=== PATIENT | male | born 2000 | race Caucasian/White ===

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

== ENCOUNTER → 2018-06-16 | Day surgery (SDC) | payer BC, OTHER ==
[2018-05-29 13:40] VITALS: BMI 24.0
--- NOTE | 2018-06-15 16:04 | History and Physical ---
History & Physical Date Jun 15, 2018. Chief Complaint airway obstruction, sleep apnea History of Present Illness The patient is a 17 year old male with complaints of sleep apnea aggravated by deviated septum and hypertrophied tonsils Additional History Hepatic Disease: No Endocrine Disorder: No Kidney Disease: No Hypertension: No Heart Disease: No Bleeding Tendencies: No Infectious Diseases: No Allergies Coded Allergies: Sulfamethoxazole w/Trimethoprim (Verified Adverse Reaction, Mild, nausea, SOB, 05/29/18) Home Medications Scheduled Cholecalciferol (Vitamin D3), Unknown Dose PO QAM Clindamycin Phosphate-Benzoyl (Onexton 1.2-3.75 %), 1 APPLN TOP QAM Fish Oil ([place]-3), Unknown Dose PO QAM Sertraline (Zoloft), 1 TAB PO QAM Tazarotene (Tazorac 0.1% Cream), 1 APPLN TOP HS Physical Examination Skin: warm/dry, no rash Eyes: normal inspection, EOMI, sclerae normal ENT: normal ENT inspection, pharynx normal Head: normocephalic, atraumatic Neck: supple, no adenopathy, trachea midline Respiratory/Chest: lungs clear, normal breath sounds, no respiratory distress Cardiovascular: regular rate, rhythm, no edema, no murmur Abdomen / GI: normal bowel sounds, non tender Back: normal inspection Extremities: normal inspection, normal range of motion Neurologic/Psych: no motor/sensory deficits, alert, normal reflexes, oriented x 3 Diagnosis chronic tonsillitis, septal deviation, sleep apnea Plan of Treatment adenotonsillectomy, septoplasty, Celon turbinates
[~2018-06-16] VITALS: Ht 185.4 cm; Wt 84.1 kg
[~2018-06-16] MED LIST: ACETAMINOPHEN/HYDROCODONE ELIX 15 ML/CUP UDP PO PRN; ATROPINE SULFATE 0.1 MG/ML 5ML SYR IV PRN; BUPIVACAINE/EPINEPHRINE 0.5% MPF 1:200,000 30 ML VIAL ONE; CEFAZOLIN 2000MG IV PUSH 15 ML IV SCH; CHOL1000 PO; CLIN1GEL41 TOP; EpHEDrine SULFATE INJ 50 MG/ML AMP IV PRN; EpINEphrine INJ 1MG/ML AMP 1 MG/ML AMP ONE; FENTANYL CITRATE INJ 50 MCG/1 ML 2 ML VIAL ONE; GELATIN SPONGE 12-7MM ONE; GLYCOPYRROLATE INJ 0.2 MG/ML VIAL ONE; HYDR1SOL10 PO; HYDROmorphone INJ 0.5 MG/0.5 ML SYR IV PRN; LACTATED RINGER'S 1000ML 1,000 ML IV SCH; LIDOCAINE 2% 20 MG/ML 5ML SYR ONE; LIDOCAINE 4% INH SOLN 4 ML BTL ONE; LIDOCAINE/EPINEPHRINE 2% 1:200,000 20 ML SDV INFIL ONE; MIDAZOLAM HCL 1 MG/ML 2ML VIAL ONE; MUPIROCIN 2% OINT 22 GM TUBE ONE; NEOSTIGMINE METHYLSULFATE 5 MG/5 ML SYR ONE; OMEG10007 PO; ONDANSETRON INJ 2 MG/ML 2 ML VIAL IV PRN; ONDANSETRON INJ 2 MG/ML 2 ML VIAL ONE; PROPOFOL IV EMULSION 10 MG/ML 20 ML VIAL ONE; ROCURONIUM BROMIDE 10 MG/ML 5 ML VIAL ONE; SERT25TA PO; SODIUM CHLORIDE 0.9% 1000ML 1,000 ML IV SCH; TZRCR160 TOP
[2018-06-16 08:03] VITALS: BP 154/94; PULSE 96; TEMP 37.1; O2SAT 100; Ht 185.4 cm; Wt 84.1 kg
--- NOTE | 2018-06-16 09:22 | History & Physical Bridge Note ---
H&P Re-Evaluation Bridge Note: I have examined the patient, reviewed the History & Physical and in the interval since the performance of the History & Physical I have noted the following changes of clinical significance: No changes noted
--- NOTE | 2018-06-16 10:45 | [facility] Post Operative Brief Note ---
Immediate Operative Summary Operative Date Jun 16, 2018. Pre-Operative Diagnosis airway obstruction, sleep apnea Post-Operative Diagnosis airway obstruction, sleep apnea Procedure(s) Performed Adenotonsillectomy, Septoplasty, Celon Turbinate Surgeon Dr jaramillo Offset Printing Operator Surgeon(s) None Estimated Blood Loss 20cc Findings Consistent with Post-Op Diagnosis Specimens As Per Surgeon A. Right Tonsil B. Left Tonsil Drains None Anesthesia Type General Complication(s) none Disposition Accompanied Pt To Recover: yes Disposition: Recovery Room / PACU Overlapping Procedure I was present for: the critical portions of procedure. I was immediately available: during the entire case
--- NOTE | 2018-06-16 10:47 | Discharge Instructions ---
Discharge Instructions Date of Service Jun 16, 2018. Admission Reason for Admission: Chronic Tonsillitis, Septal Deviation, Sleep Apnea Discharge Discharge Diagnosis / Problem: same Discharge Goals Goal(s): Improve function Activity Recommendations Activity Limitations: per Instructions/Follow-up section . Instructions / Follow-Up Instructions / Follow-Up ACTIVITY RECOMMENDATIONS: * During the first few days, activities should be limited. * Stay indoors for several days. * After 48 hours, activity can gradually be increased to normal activity. RETURN TO SCHOOL/WORK: * Return to school or work in one week. * No physical education for two weeks. OVER THE COUNTER MEDICATIONS: * You may use Tylenol * Avoid aspirin or aspirin containing products, e.g. as they may increase bleeding. SPECIAL CARE INSTRUCTIONS: * Avoid coughing or clearing the throat. * Do not use a straw. * A sore throat is expected frequently accompanied by pain radiating to the ears. This is normal. * Expect bad breath until "scabs" are healed. * Notify the doctor if bleeding occurs, vomiting, temperature greater than 101 degrees Fahrenheit. Call or cell phone: . * If bleeding occurs, it is usually in the first 24 hours or after the 5th day. If unable to reach the doctor, go to the nearest Emergency Department. Special Diet: * Fluids are very important and should be encouraged to maintain adequate hydration. * To maintain nutrition, eat soft foods and after 48 hours the consistency of foods can be increased. Examples are jello, soup, pasta, ice cream and mashed foods. FOLLOW UP VISIT: Follow-up visit with Dr. Bruno in 2 weeks. Please call to schedule if not already scheduled.ACTIVITY RECOMMENDATIONS: * Being up and around is good, but no strenuous activity, heavy lifting or physical exertion for one week. * Keep your head elevated 30 degrees when lying down or sleeping. * Do not blow your nose for 48 hours, sniff back instead. * Avoid hot showers. OVER THE COUNTER MEDICATIONS: * You may use Tylenol * Avoid aspirin or aspirin containing products, e.g. as they may increase bleeding. SPECIAL CARE INSTRUCTIONS: * Expect to have bloody drainage from your nose and/or down your throat for one to three days. Change drip pad as needed. * Begin irrigating your nose with saline solution today, at least six to ten times per day and sniff back to help remove old clots or crust. * You may experience nasal and facial congestion, pain and pressure, this is normal. * Please call with any significant and/or progressive pain, redness, swelling around the eyes, visual changes, fever of 101.5 degrees F, active bleeding or any problems or concerns. * If active bleeding occurs, spray the nose three times at one minute intervals with Afrin spray and call or cell phone: . If unable to reach the doctor, go to the nearest Emergency Department. Special Diet: * Avoid extremely hot fluids. FOLLOW UP VISIT: Follow-up Visit with Dr. Bruno If not already scheduled, please call to schedule. Current Hospital Diet Patient's current hospital diet: Discharge Diet Recommended Diet: Full Liquid Diet Diet Texture: Mechanical Soft (ground) Procedures Procedures Performed: Adenotonsillectomy, Septoplasty, Celon Turbinate Pending Studies Studies pending at discharge: no Medical Emergencies . Who to Call and When: Medical Emergencies: If at any time you feel your situation is an emergency, please call 911 immediately. . Non-Emergent Contact Non-Emergency issues call your: Primary Care Provider . "Provider Documentation" section prepared by Cheryl Bruno. . [place] Drug Monitoring Program Search Results: no issues identified
[2018-06-16] MEDS: FENTANYL CITRATE INJ 50 MCG/1 ML 2 ML VIAL IV PRN ×2 (11:12→11:18)
[2018-06-16 11:57] VITALS: BP 141/74; PULSE 98; TEMP 36.8; O2SAT 98
--- NOTE | 2018-06-16 11:59 | OPERATIVE REPORT ---
DATE OF OPERATION: 06/16/2018 PREOPERATIVE DIAGNOSES: Chronic tonsillitis, septal deviation, and sleep apnea. POSTOPERATIVE DIAGNOSES: Chronic tonsillitis, septal deviation, and sleep apnea. PROCEDURE: Adenotonsillectomy, septoplasty, Celon of the turbinates. SURGEON: Dr. Bruno. ANESTHESIA: General endotracheal. COMPLICATIONS: None. BLOOD LOSS: 20 mL. HISTORY OF PRESENT ILLNESS: A 17-year-old with recurrent chronic tonsillitis, also septal deviation to the left, and significant sleep apnea on sleep study. DESCRIPTION OF PROCEDURE: The patient was brought to the operating room and placed in supine position. General endotracheal anesthesia was induced. He was prepped and draped in usual sterile manner. The nose was decongested using topical cottonoids with a solution of 4 mL of 4% Xylocaine with 1 mL of epinephrine. Injection of 2% Xylocaine with 1:100,000 strength epinephrine was also used. The inferior turbinates were treated with radiofrequency volume reduction using the Celon machine creating 5 lesions in each inferior turbinate. The inferior turbinates were then fractured laterally using the freer elevator. The left hemitransfixion incision was made and mucoperichondrium elevated off of the left side of the septum. The cartilage was deviated to the left inferiorly as was the perpendicular plate of the ethmoid. Superior and inferior tunnels were elevated and bilateral posterior tunnels were elevated after the cartilage from the perpendicular plate of the ethmoid. The bony cartilaginous spur projecting to the left was removed using the 15 blade, the Casey dissector, and then the Benton-Roge rongeurs, and the Nae forceps. The bone spur to the left inferiorly had to be removed using the 4 mm osteotome cutting along the bone spur projecting to the left. The septum was closed using continuous mattress suture of 4-0 plain gut. Anterior nasal packing of Gelfoam was placed. The patient was brought to the operating room and placed in supine position. General endotracheal anesthesia was induced, draped in the usual manner. Mouth gag was placed. Peritonsillar area was injected with .5% Sensorcaine, 1:200:000 strength Epinephrine. Soft palate retracted using a red Pacheco catheter. Tonsillectomy performed using the coblation device coblating out the tonsil from anterior to the posterior pillar and from the superior pole to the inferior pole. Both tonsils were removed in a similar manner. Hemostasis was controlled with the coblation device. Adenoidectomy was performed using the coblation technique and hemostasis controlled using the coblation technique. The patient tolerated the procedure well and was taken to the recovery area in satisfactory condition. I attest to the content of the Intraoperative Record and any orders documented therein. Any exception s are noted below.
--- NOTE | 2018-06-16 12:10 | Anesthesiology Progress Note ---
Anesthesia Post Op Note Date & Time Jun 16, 2018 at 12:09 Vital Signs Pain Intensity: 3 Vital Signs Past 12 Hours Date Time Temp Pulse Resp B/P (MAP) Pulse Ox O2 Delivery O2 Flow Rate FiO2 06/16/18 11:45 37.0 99 13 138/81 99 Room Air 06/16/18 11:35 100 14 143/76 97 Room Air 06/16/18 11:25 101 18 137/82 100 Oxymask 10 06/16/18 11:15 108 12 147/76 100 Oxymask 10 06/16/18 11:06 36.3 117 12 134/88 100 Oxymask 10 06/16/18 08:03 37.1 96 18 154/94 (114) 100 Room Air Notes Mental Status: alert / awake / arousable, participated in evaluation Pt Amnestic to Procedure: Yes Nausea / Vomiting: adequately controlled Pain: adequately controlled Airway Patency, RR, SpO2: stable & adequate BP & HR: stable & adequate Hydration State: stable & adequate Anesthetic Complications: no major complications apparent
[2018-06-16 12:27] VITALS: BP 140/74; PULSE 95; O2SAT 98
[2018-06-16 13:00] VITALS: BP 151/80; PULSE 98; TEMP 36.9; O2SAT 98
== END | disposition home or self-care (01) ==
LOC: C.ACU 07:40
PROVIDERS: ATTEND Otolaryngology
DX: J35.01 Chronic tonsillitis (principal); J34.2 Deviated nasal septum; G47.33 Obstructive sleep apnea (adult) (pediatric); Z88.1 Allergy status to other antibiotic agents; Z88.2 Allergy status to sulfonamides

== ENCOUNTER 2020-01-31 12:31 | Inpatient (IN) ==
[2020-01-31] MEDS ORDERED: SODIUM CHLORIDE 0.9% 1000ML 1,000 ML IV ONE (13:17)
[2020-01-31] MEDS ORDERED: SODIUM CHLORIDE 0.9% 1000ML 2,000 ML IV ONE (13:17)
[2020-01-31] MEDS ORDERED: cefTRIAXone SODIUM 1,000 MG/50 ML BAG IV STA ×2 (13:17→13:27)
[2020-01-31] MEDS ORDERED: ACETAMINOPHEN 500 MG TAB PO STA (13:17)
--- NOTE | 2020-01-31 13:23 | Emergency Department Note ---
ED Provider Note NAME: ROCKY HUGHES AGE: 19 SEX: M ARRIVES VIA: Walk-In INFORMANT: Patient ED PROVIDER(S): Ananth Polo DO CHIEF COMPLAINT: Shortness of breath MEDICAL DECISION MAKING: Patient is a 19-year-old male with no significant past medical history is that presents the ER for mild cough associated with fever and shortness of breath. He traveled to [place] over a month ago and was there for a month and a half. The symptoms all started in the past 24 hours. No other recent exposure. Upon presentation he was found to be hypoxic, tachycardic and febrile. He was placed on 2 L nasal cannula. IV was established blood work was obtained and showed a leukocytosis of 26,000. No significant anemia. BMP with mild hyponatremia. INR was appropriate. LFTs was unremarkable. Magnesium was slightly low. Lactate was normal. Chest x-ray with a bilateral pneumonia. With his travel and presentation although extremely atypical due to the duration as he has been out for over 4 weeks did order bio fire which came back negative. After this I discussed with our hospital infectious disease nurse who did agree with testing for rehman. Orders were placed. Nurse could call Department of Health to facilitate this. I did re-update Dr. Lara who I discussed the case with for admission already at this time. Patient was given IV Rocephin and oral azithromycin. He was given 2 L IV fluids. Mom and dad were updated on 2 separate times. Patient remained in isolation throughout the whole time. Triage Nursing notes reviewed and agree them. Additional history obtained from parents Prior medical records reviewed Vital Signs: reviewed and remarkable for febrile, tachycardic, hypoxic Differential diagnosis: Differential diagnoses includes but is not limited to pneumonia, bronchitis, COPD/Asthma exacerbation, pneumothorax, pulmonary embolism, congestive heart failure, acute coronary syndrome Diagnostics interpreted by me: ECG: Sinus tach rate of 113. Normal axis. ST depressions in the inferior anterior and lateral. T wave inversion in the inferior leads. Incomplete right bundle. Normal QTC. Cardiac Monitoring: Sinus tach 112 Laboratory studies: See below Imaging studies: See below chest x-ray shows a multifocal pneumonia left worse than right. Consultation(s): Lynn Lara for admission. Discussed with infectious disease nurse in regards to carotid testing. HPI:Patient is 19-year-old male with no significant past medical history that presents the ER for shortness of breath associated with fever and tachycardia. He has recent travel to [place] for 1.5 months. He just returned 4 weeks ago. Shortness of breath chest pain and cough have started in the past 24 hours. He does complain of persistent left-sided chest pain. Denies any other travel throughout the [place]. Fever started in the past 24 hours as well. Denies any open wound open sores. No swelling of his cast. No belly pain but does admit to the nausea and one episode of vomiting. No diarrhea. ROS: See above HPI for pertinent positives & negatives. A total of 10 systems reviewed and were otherwise negative. PAST MEDICAL HISTORY: Anxiety PAST SURGICAL HISTORY:None FAMILY HISTORY:See Below SOCIAL HISTORY:Admits to drinking HOME MEDICATIONS:See Below ALLERGIES:See Below VITALS:See Below PHYSICAL EXAMINATION: GENERAL: Sitting up in bed, ill appearing, mild distress EYE EXAM: normal conjunctiva. OROPHARYNX: no exudate, no erythema, lips, buccal mucosa, and tongue normal and mucous membranes are moist NECK: supple, no nuchal rigidity, no adenopathy, non-tender LUNGS: Clear to auscultation. Normal chest wall mechanics HEART: no murmurs, S1 normal and S2 normal ABDOMEN: abdomen soft, non-tender, normo-active bowel sounds, no masses, no rebound or guarding. BACK: Back is symmetrical on inspection and there is no deformity, no midline tenderness, no CVA tenderness. SKIN: no rashes and no bruising UPPER EXTREMITIES: upper extremities are grossly normal. LOWER EXTREMITIES: No pitting edema. NEURO EXAM: Normal sensorium, cranial nerves II-XII grossly intact, normal speech, no gross weakness of arms, no gross weakness of legs. ED COURSE: Procedures: none Critical Care: I have personally spent 80 minutes of critical care time in the direct management of this patient. This includes bedside care, interpretation of diagnostic studies, and testing, discussion with consultants, patient, and family members, and other required patient management activities. This 80 minutes is in excess of all separately billable procedures. Impression & Plan Sepsis, Multifocal pneumonia, Hypoxia Past Med/Surg History Medical History Acne (Acute) Anxiety Anxiety (Inactive) Fever (Acute) Suicidal ideation (Inactive) Family History Other No pertinent family history in first degree relatives Social History (Updated 01/31/20 @ 17:57 by Estelle Lara DO) Preferred Language: Romanian Feels Safe at Home: Yes Smoking Status: Never smoker Hx Alcohol Use: Yes (hx of heavy use, none x3 weeks) Hx Substance Use: No Results & Data Vital Signs Vital Signs - 24 hr 01/31/20 12:36 01/31/20 13:14 01/31/20 13:15 Temperature 38.1 C H Temperature Source Oral Pulse Rate 121 H 118 H 116 H Pulse Rate [Apical] Pulse Rate from SpO2 Sensor 118 H 117 H Pulse Rhythm Regular Pulse Strength Normal Respiratory Rate 20 34 H 30 H Respiratory Effort / Characteristics Non-Labored Respiratory Depth Normal Respiratory Pattern Regular Blood Pressure 142/90 H 151/109 H Blood Pressure [Left Arm] Blood Pressure Mean 107 141 Blood Pressure Mean [Left Arm] Blood Pressure Position Sitting Pulse Oximetry 89 L 93 92 Oxygen Delivery Method Room Air Oxygen Flow Rate Sepsis Recent Fever Within 48 Hours No Sepsis Action Taken by Nursing No Action Required 01/31/20 13:20 01/31/20 13:30 01/31/20 13:31 Temperature Temperature Source Pulse Rate 119 H 116 H 116 H Pulse Rate [Apical] Pulse Rate from SpO2 Sensor 119 H 123 H 115 H Pulse Rhythm Pulse Strength Respiratory Rate 29 H 41 H 23 Respiratory Effort / Characteristics Respiratory Depth Respiratory Pattern Blood Pressure 131/79 Blood Pressure [Left Arm] Blood Pressure Mean 101 Blood Pressure Mean [Left Arm] Blood Pressure Position Pulse Oximetry 92 92 91 Oxygen Delivery Method Nasal Cannula Oxygen Flow Rate 3 Sepsis Recent Fever Within 48 Hours Sepsis Action Taken by Nursing 01/31/20 13:40 01/31/20 13:50 01/31/20 14:00 Temperature Temperature Source Pulse Rate 112 H 112 H 113 H Pulse Rate [Apical] Pulse Rate from SpO2 Sensor 111 H 113 H 115 H Pulse Rhythm Pulse Strength Respiratory Rate Respiratory Effort / Characteristics Respiratory Depth Respiratory Pattern Blood Pressure Blood Pressure [Left Arm] Blood Pressure Mean Blood Pressure Mean [Left Arm] Blood Pressure Position Pulse Oximetry 92 92 91 Oxygen Delivery Method Oxygen Flow Rate Sepsis Recent Fever Within 48 Hours Sepsis Action Taken by Nursing 01/31/20 14:10 01/31/20 14:13 01/31/20 14:20 Temperature Temperature Source Pulse Rate 109 H 109 H 116 H Pulse Rate [Apical] Pulse Rate from SpO2 Sensor 112 H 109 H 116 H Pulse Rhythm Pulse Strength Respiratory Rate Respiratory Effort / Characteristics Respiratory Depth Respiratory Pattern Blood Pressure 148/88 H Blood Pressure [Left Arm] Blood Pressure Mean 112 Blood Pressure Mean [Left Arm] Blood Pressure Position Pulse Oximetry 94 95 96 Oxygen Delivery Method Oxygen Flow Rate Sepsis Recent Fever Within 48 Hours Sepsis Action Taken by Nursing 01/31/20 14:30 01/31/20 14:31 01/31/20 14:40 Temperature Temperature Source Pulse Rate 111 H 112 H 113 H Pulse Rate [Apical] Pulse Rate from SpO2 Sensor 112 H 111 H 114 H Pulse Rhythm Pulse Strength Respiratory Rate 25 H Respiratory Effort / Characteristics Respiratory Depth Respiratory Pattern Blood Pressure 145/86 H Blood Pressure [Left Arm] Blood Pressure Mean 99 Blood Pressure Mean [Left Arm] Blood Pressure Position Pulse Oximetry 93 93 92 Oxygen Delivery Method Oxygen Flow Rate Sepsis Recent Fever Within 48 Hours Sepsis Action Taken by Nursing 01/31/20 14:50 01/31/20 15:00 01/31/20 15:01 Temperature Temperature Source Pulse Rate 113 H 107 H 105 H Pulse Rate [Apical] Pulse Rate from SpO2 Sensor 114 H 107 H 106 H Pulse Rhythm Pulse Strength Respiratory Rate 26 H 28 H Respiratory Effort / Characteristics Respiratory Depth Respiratory Pattern Blood Pressure 135/69 Blood Pressure [Left Arm] Blood Pressure Mean 98 Blood Pressure Mean [Left Arm] Blood Pressure Position Pulse Oximetry 93 93 95 Oxygen Delivery Method Oxygen Flow Rate Sepsis Recent Fever Within 48 Hours Sepsis Action Taken by Nursing 01/31/20 15:07 01/31/20 15:10 01/31/20 15:20 Temperature Temperature Source Pulse Rate 105 H 108 H Pulse Rate [Apical] 103 H Pulse Rate from SpO2 Sensor 105 H 108 H Pulse Rhythm Pulse Strength Respiratory Rate 26 H 27 H Respiratory Effort / Characteristics Respiratory Depth Respiratory Pattern Blood Pressure Blood Pressure [Left Arm] 135/69 Blood Pressure Mean Blood Pressure Mean [Left Arm] 91 Blood Pressure Position Pulse Oximetry 94 94 92 Oxygen Delivery Method Nasal Cannula Oxygen Flow Rate 2 Sepsis Recent Fever Within 48 Hours Sepsis Action Taken by Nursing 01/31/20 15:30 01/31/20 15:31 01/31/20 15:40 Temperature Temperature Source Pulse Rate 108 H 108 H Pulse Rate [Apical] Pulse Rate from SpO2 Sensor 109 H 108 H 109 H Pulse Rhythm Pulse Strength Respiratory Rate 33 H Respiratory Effort / Characteristics Respiratory Depth Respiratory Pattern Blood Pressure 145/84 H Blood Pressure [Left Arm] Blood Pressure Mean 117 Blood Pressure Mean [Left Arm] Blood Pressure Position Pulse Oximetry 91 91 90 Oxygen Delivery Method Oxygen Flow Rate Sepsis Recent Fever Within 48 Hours Sepsis Action Taken by Nursing 01/31/20 15:50 01/31/20 16:00 01/31/20 16:10 Temperature Temperature Source Pulse Rate 107 H 108 H 107 H Pulse Rate [Apical] Pulse Rate from SpO2 Sensor 107 H 108 H 113 H Pulse Rhythm Pulse Strength Respiratory Rate 21 26 H Respiratory Effort / Characteristics Respiratory Depth Respiratory Pattern Blood Pressure 135/84 Blood Pressure [Left Arm] Blood Pressure Mean 97 Blood Pressure Mean [Left Arm] Blood Pressure Position Pulse Oximetry 91 Oxygen Delivery Method Oxygen Flow Rate Sepsis Recent Fever Within 48 Hours Sepsis Action Taken by Nursing 01/31/20 16:20 01/31/20 16:30 01/31/20 16:31 Temperature Temperature Source Pulse Rate 106 H 105 H 103 H Pulse Rate [Apical] Pulse Rate from SpO2 Sensor 106 H 105 H 103 H Pulse Rhythm Pulse Strength Respiratory Rate 29 H 35 H 21 Respiratory Effort / Characteristics Respiratory Depth Respiratory Pattern Blood Pressure 131/85 Blood Pressure [Left Arm] Blood Pressure Mean 95 Blood Pressure Mean [Left Arm] Blood Pressure Position Pulse Oximetry 94 93 94 Oxygen Delivery Method Oxygen Flow Rate Sepsis Recent Fever Within 48 Hours Sepsis Action Taken by Nursing 01/31/20 16:40 01/31/20 16:50 01/31/20 17:00 Temperature Temperature Source Pulse Rate 98 H 119 H 102 H Pulse Rate [Apical] Pulse Rate from SpO2 Sensor 98 H 112 H 104 H Pulse Rhythm Pulse Strength Respiratory Rate 22 22 Respiratory Effort / Characteristics Respiratory Depth Respiratory Pattern Blood Pressure Blood Pressure [Left Arm] Blood Pressure Mean Blood Pressure Mean [Left Arm] Blood Pressure Position Pulse Oximetry 93 89 L 92 Oxygen Delivery Method Oxygen Flow Rate Sepsis Recent Fever Within 48 Hours Sepsis Action Taken by Nursing 01/31/20 17:10 01/31/20 17:20 01/31/20 17:30 Temperature Temperature Source Pulse Rate 94 H 95 H 106 H Pulse Rate [Apical] Pulse Rate from SpO2 Sensor 94 H 96 H 112 H Pulse Rhythm Pulse Strength Respiratory Rate 35 H 34 H 28 H Respiratory Effort / Characteristics Respiratory Depth Respiratory Pattern Blood Pressure Blood Pressure [Left Arm] Blood Pressure Mean Blood Pressure Mean [Left Arm] Blood Pressure Position Pulse Oximetry 91 93 94 Oxygen Delivery Method Oxygen Flow Rate Sepsis Recent Fever Within 48 Hours Sepsis Action Taken by Nursing 01/31/20 17:40 01/31/20 17:50 01/31/20 18:00 Temperature Temperature Source Pulse Rate 105 H 96 H 98 H Pulse Rate [Apical] Pulse Rate from SpO2 Sensor 110 H 98 H 98 H Pulse Rhythm Pulse Strength Respiratory Rate 22 29 H Respiratory Effort / Characteristics Respiratory Depth Respiratory Pattern Blood Pressure Blood Pressure [Left Arm] Blood Pressure Mean Blood Pressure Mean [Left Arm] Blood Pressure Position Pulse Oximetry 93 94 95 Oxygen Delivery Method Oxygen Flow Rate Sepsis Recent Fever Within 48 Hours Sepsis Action Taken by Nursing 01/31/20 18:10 01/31/20 18:11 01/31/20 18:20 Temperature Temperature Source Pulse Rate 93 H 102 H 98 H Pulse Rate [Apical] Pulse Rate from SpO2 Sensor 102 H 100 H 99 H Pulse Rhythm Pulse Strength Respiratory Rate 29 H 21 Respiratory Effort / Characteristics Respiratory Depth Respiratory Pattern Blood Pressure 131/89 Blood Pressure [Left Arm] Blood Pressure Mean 98 Blood Pressure Mean [Left Arm] Blood Pressure Position Pulse Oximetry 96 94 93 Oxygen Delivery Method Oxygen Flow Rate Sepsis Recent Fever Within 48 Hours Sepsis Action Taken by Nursing 01/31/20 18:22 Temperature 37.0 C Temperature Source Oral Pulse Rate Pulse Rate [Apical] Pulse Rate from SpO2 Sensor Pulse Rhythm Pulse Strength Respiratory Rate Respiratory Effort / Characteristics Respiratory Depth Respiratory Pattern Blood Pressure Blood Pressure [Left Arm] Blood Pressure Mean Blood Pressure Mean [Left Arm] Blood Pressure Position Pulse Oximetry Oxygen Delivery Method Oxygen Flow Rate Sepsis Recent Fever Within 48 Hours Sepsis Action Taken by Nursing Laboratory Data Result diagrams: 01/31/20 13:22 01/31/20 13:22 Lab Results 01/31/20 01/31/20 01/31/20 Range/Units 13:20 13:22 13:22 WBC 26.32 H (4.8-10.8) K/uL RBC 4.95 (4.7-6.1) M/uL Hgb 16.9 (14.0-18.0) g/dL POC Hgb (14.0-18.0) g/dl Hct 47.5 (42-52) % POC Hct (42-52) % MCV 96.0 (80-100) fL MCH 34.1 H (25-34) pg MCHC 35.6 (32-36) g/dL RDW Std Deviation 48.6 H (36.4-46.3) fL RDW Coeff of Candace 13.8 (11.5-14.5) % Plt Count 250 (130-400) K/uL MPV 9.8 (7.4-10.4) fL Immature Gran % (Auto) 0.5 % Neut % (Auto) 86.3 % Lymph % (Auto) 5.4 % Young % (Auto) 6.4 % Eos % (Auto) 1.4 % Baso % (Auto) 0.0 % Immature Gran # (Auto) 0.13 H (0.00-0.02) K/uL Neut # (Auto) 22.73 H (1.4-6.5) K/uL Lymph # (Auto) 1.41 (1.2-3.4) K/uL Young # (Auto) 1.68 H (0.11-0.59) K/uL Eos # (Auto) 0.36 (0-0.5) K/uL Baso # (Auto) 0.01 (0-0.2) K/uL PT 13.9 H (9.0-12.0) Seconds INR 1.3 H (0.9-1.1) APTT 32.4 H (21.0-31.0) Seconds PTT Ratio 1.2 POC Sodium (135-144) mmol/L Sodium (136-145) mmol/L POC Potassium (3.3-5.0) mmol/L Potassium (3.5-5.1) mmol/L POC Chloride (101-112) mmol/L Chloride (98-107) mmol/L Carbon Dioxide (21-32) mmol/L POC Total CO2 (24-31) mEq/l Anion Gap (3-11) POC Anion Gap (16-25) mmol/L POC BUN (7-18) mg/dl BUN (7-18) mg/dl Creatinine (0.6-1.4) mg/dl POC Creatinine (0.6-1.3) mg/dl Est Cr Clr Drug Dosing ml/min Est GFR ( Amer) Est GFR (Non-Af Amer) BUN/Creatinine Ratio (10-20) Glucose (70-99) mg/dl POC Glucose (other) (70-99) mg/dl Lactate (0.4-2.0) mmol/L Calcium (8.5-10.1) mg/dl POC Ioniz Calcium An (1.12-1.32) mmol/l Magnesium (1.8-2.4) mg/dl Total Bilirubin (0.2-1) mg/dl AST (15-37) U/L ALT (12-78) U/L Alkaline Phosphatase (45-117) U/L Troponin I (0-0.045) ng/ml Total Protein (6.4-8.2) gm/dl Albumin (3.4-5.0) gm/dl Globulin (2.5-4.0) gm/dl Albumin/Globulin Ratio (0.9-2) Adenovirus (PCR) (NotDetected) B. pertussis DNA (PCR) (NotDetected) B.parapertussis DNA PCR (NotDetected) C. pneumoniae DNA (PCR) (NotDetected) Coronavirus OC43 (PCR) (NotDetected) Coronavirus HKU1 (PCR) (NotDetected) Coronavirus 229E (PCR) (NotDetected) Coronavirus NL63 (PCR) (NotDetected) Human Metapneumovir PCR (NotDetected) Influenza Type A (PCR) Neg for Influ A (Neg) Influenza Type B (PCR) Neg for Influ B (Neg) M. pneumoniae (PCR) (NotDetected) Parainfluenza 1 (PCR) (NotDetected) Parainfluenza 2 (PCR) (NotDetected) Parainfluenza 3 (PCR) (NotDetected) Parainfluenza 4 (PCR) (NotDetected) RSV (PCR) (NotDetected) Entero/Rhino (PCR) (NotDetected) 01/31/20 01/31/20 01/31/20 Range/Units 13:22 13:29 13:58 WBC (4.8-10.8) K/uL RBC (4.7-6.1) M/uL Hgb (14.0-18.0) g/dL POC Hgb 17.3 (14.0-18.0) g/dl Hct (42-52) % POC Hct 51 (42-52) % MCV (80-100) fL MCH (25-34) pg MCHC (32-36) g/dL RDW Std Deviation (36.4-46.3) fL RDW Coeff of Candace (11.5-14.5) % Plt Count (130-400) K/uL MPV (7.4-10.4) fL Immature Gran % (Auto) % Neut % (Auto) % Lymph % (Auto) % Young % (Auto) % Eos % (Auto) % Baso % (Auto) % Immature Gran # (Auto) (0.00-0.02) K/uL Neut # (Auto) (1.4-6.5) K/uL Lymph # (Auto) (1.2-3.4) K/uL Young # (Auto) (0.11-0.59) K/uL Eos # (Auto) (0-0.5) K/uL Baso # (Auto) (0-0.2) K/uL PT (9.0-12.0) Seconds INR (0.9-1.1) APTT (21.0-31.0) Seconds PTT Ratio POC Sodium 135 (135-144) mmol/L Sodium 132 L (136-145) mmol/L POC Potassium 3.8 (3.3-5.0) mmol/L Potassium 3.8 (3.5-5.1) mmol/L POC Chloride 96 L (101-112) mmol/L Chloride 99 (98-107) mmol/L Carbon Dioxide 28 (21-32) mmol/L POC Total CO2 29 (24-31) mEq/l Anion Gap 5.0 (3-11) POC Anion Gap 14.0 L (16-25) mmol/L POC BUN 11 (7-18) mg/dl BUN 11 (7-18) mg/dl Creatinine 1.28 (0.6-1.4) mg/dl POC Creatinine 1.2 (0.6-1.3) mg/dl Est Cr Clr Drug Dosing 100.2 ml/min Est GFR ( Amer) 92.1 Est GFR (Non-Af Amer) 79.5 BUN/Creatinine Ratio 8.8 L (10-20) Glucose 94 (70-99) mg/dl POC Glucose (other) 94 (70-99) mg/dl Lactate 1.4 (0.4-2.0) mmol/L Calcium 8.9 (8.5-10.1) mg/dl POC Ioniz Calcium An 1.06 L (1.12-1.32) mmol/l Magnesium 1.7 L (1.8-2.4) mg/dl Total Bilirubin 1.1 H (0.2-1) mg/dl AST 22 (15-37) U/L ALT 29 (12-78) U/L Alkaline Phosphatase 79 (45-117) U/L Troponin I < 0.015 (0-0.045) ng/ml Total Protein 8.7 H (6.4-8.2) gm/dl Albumin 3.9 (3.4-5.0) gm/dl Globulin 4.8 H (2.5-4.0) gm/dl Albumin/Globulin Ratio 0.8 L (0.9-2) Adenovirus (PCR) (NotDetected) B. pertussis DNA (PCR) (NotDetected) B.parapertussis DNA PCR (NotDetected) C. pneumoniae DNA (PCR) (NotDetected) Coronavirus OC43 (PCR) (NotDetected) Coronavirus HKU1 (PCR) (NotDetected) Coronavirus 229E (PCR) (NotDetected) Coronavirus NL63 (PCR) (NotDetected) Human Metapneumovir PCR (NotDetected) Influenza Type A (PCR) (Neg) Influenza Type B (PCR) (Neg) M. pneumoniae (PCR) (NotDetected) Parainfluenza 1 (PCR) (NotDetected) Parainfluenza 2 (PCR) (NotDetected) Parainfluenza 3 (PCR) (NotDetected) Parainfluenza 4 (PCR) (NotDetected) RSV (PCR) (NotDetected) Entero/Rhino (PCR) (NotDetected) 01/31/20 Range/Units 15:00 WBC (4.8-10.8) K/uL RBC (4.7-6.1) M/uL Hgb (14.0-18.0) g/dL POC Hgb (14.0-18.0) g/dl Hct (42-52) % POC Hct (42-52) % MCV (80-100) fL MCH (25-34) pg MCHC (32-36) g/dL RDW Std Deviation (36.4-46.3) fL RDW Coeff of Candace (11.5-14.5) % Plt Count (130-400) K/uL MPV (7.4-10.4) fL Immature Gran % (Auto) % Neut % (Auto) % Lymph % (Auto) % Young % (Auto) % Eos % (Auto) % Baso % (Auto) % Immature Gran # (Auto) (0.00-0.02) K/uL Neut # (Auto) (1.4-6.5) K/uL Lymph # (Auto) (1.2-3.4) K/uL Young # (Auto) (0.11-0.59) K/uL Eos # (Auto) (0-0.5) K/uL Baso # (Auto) (0-0.2) K/uL PT (9.0-12.0) Seconds INR (0.9-1.1) APTT (21.0-31.0) Seconds PTT Ratio POC Sodium (135-144) mmol/L Sodium (136-145) mmol/L POC Potassium (3.3-5.0) mmol/L Potassium (3.5-5.1) mmol/L POC Chloride (101-112) mmol/L Chloride (98-107) mmol/L Carbon Dioxide (21-32) mmol/L POC Total CO2 (24-31) mEq/l Anion Gap (3-11) POC Anion Gap (16-25) mmol/L POC BUN (7-18) mg/dl BUN (7-18) mg/dl Creatinine (0.6-1.4) mg/dl POC Creatinine (0.6-1.3) mg/dl Est Cr Clr Drug Dosing ml/min Est GFR ( Amer) Est GFR (Non-Af Amer) BUN/Creatinine Ratio (10-20) Glucose (70-99) mg/dl POC Glucose (other) (70-99) mg/dl Lactate (0.4-2.0) mmol/L Calcium (8.5-10.1) mg/dl POC Ioniz Calcium An (1.12-1.32) mmol/l Magnesium (1.8-2.4) mg/dl Total Bilirubin (0.2-1) mg/dl AST (15-37) U/L ALT (12-78) U/L Alkaline Phosphatase (45-117) U/L Troponin I (0-0.045) ng/ml Total Protein (6.4-8.2) gm/dl Albumin (3.4-5.0) gm/dl Globulin (2.5-4.0) gm/dl Albumin/Globulin Ratio (0.9-2) Adenovirus (PCR) Not Detected (NotDetected) B. pertussis DNA (PCR) Not Detected (NotDetected) B.parapertussis DNA PCR Not Detected (NotDetected) C. pneumoniae DNA (PCR) Not Detected (NotDetected) Coronavirus OC43 (PCR) Not Detected (NotDetected) Coronavirus HKU1 (PCR) Not Detected (NotDetected) Coronavirus 229E (PCR) Not Detected (NotDetected) Coronavirus NL63 (PCR) Not Detected (NotDetected) Human Metapneumovir PCR Not Detected (NotDetected) Influenza Type A (PCR) Not Detected (Neg) Influenza Type B (PCR) Not Detected (Neg) M. pneumoniae (PCR) Not Detected (NotDetected) Parainfluenza 1 (PCR) Not Detected (NotDetected) Parainfluenza 2 (PCR) Not Detected (NotDetected) Parainfluenza 3 (PCR) Not Detected (NotDetected) Parainfluenza 4 (PCR) Not Detected (NotDetected) RSV (PCR) Not Detected (NotDetected) Entero/Rhino (PCR) Not Detected (NotDetected) Administered Medications Discontinued Medications Acetaminophen (Tylenol) 1,000 mg PO NOW STA Stop: 01/31/20 13:18 Last Admin: 01/31/20 14:11 Dose: 1,000 mg Documented by: [id number] Azithromycin (Zithromax) 500 mg PO NOW ONE Stop: 01/31/20 13:28 Last Admin: 01/31/20 14:11 Dose: 500 mg Documented by: [id number] Sodium Chloride (Nss 1000ml) 1,000 mls @ 999 mls/hr IV .Q1H1M ONE Stop: 01/31/20 14:17 Last Infusion: 01/31/20 15:19 Dose: 0 mls/hr Documented by: [id number] Admin: 01/31/20 14:10 Dose: 999 mls/hr Documented by: [id number] Sodium Chloride (Nss 1000ml) 2,000 mls @ 999 mls/hr IV .Q2H1M ONE Stop: 01/31/20 15:17 Last Infusion: 01/31/20 17:37 Dose: 0 mls/hr Documented by: [id number] Admin: 01/31/20 14:41 Dose: 999 mls/hr Documented by: [id number] Ceftriaxone Sodium (Rocephin) 1,000 mg in 50 mls @ 100 mls/hr IV NOW STA Stop: 01/31/20 13:46 Last Infusion: 01/31/20 15:19 Dose: 0 mls/hr Documented by: [id number] Admin: 01/31/20 14:11 Dose: 100 mls/hr Documented by: [id number] Ceftriaxone Sodium (Rocephin) 1,000 mg in 50 mls @ 100 mls/hr IV NOW STA Stop: 01/31/20 13:56 Last Infusion: 01/31/20 15:19 Dose: 0 mls/hr Documented by: [id number] Admin: 01/31/20 14:20 Dose: 100 mls/hr Documented by: [id number] Ketorolac Tromethamine (Toradol) 15 mg IV NOW ONE Stop: 01/31/20 15:47 Last Admin: 01/31/20 16:17 Dose: 15 mg Documented by: [id number] Lorazepam (Ativan) 0.5 mg SL NOW STA Stop: 01/31/20 16:07 Last Admin: 01/31/20 16:17 Dose: 0.5 mg Documented by: [id number] Discharge Plan Visit Data Chief Complaint: Illness Stated Complaint: SHALLOW BREATING,HEADACHE,NAUSEA,LIGHT HEADED ED Provider: Ananth Polo Discharge Problem: Sepsis, Multifocal pneumonia, Hypoxia Forms Stand Alone Forms: [facility] Prescriptions Prescriptions: No Action hydroxyzine pamoate [Vistaril] 25 mg capsule 25 - 50 mg PO Q8H PRN (Reason: Pain) RF: 0 trazodone 50 mg tablet 25 mg PO HS PRN (Reason: Sleep) RF: 0 escitalopram oxalate [Lexapro] 10 mg Tablet 10 mg PO QAM RF: 0 Discharge Problem: Sepsis Qualifiers: Sepsis type: sepsis due to unspecified organism Sepsis acute organ dysfunction status: unspecified Qualified Code(s): A41.9 - Sepsis, unspecified organism
[2020-01-31] MEDS ORDERED: AZITHROMYCIN 250 MG TAB PO ONE (13:27)
[2020-01-31 13:37] LABS: Hematocrit (blood only) 47.5 % (42-52); Hemoglobin 16.9 g/dL (14.0-18.0); Mean Corpuscular Hemoglobin 34.1 pg (25-34); Mean Corpuscular Hgb Conc 35.6 g/dL (32-36); Mean Platelet Volume 9.8 fL (7.4-10.4); Platelet Count 250 K/uL (130-400); RDW Coefficient of Variation 13.8 % (11.5-14.5); RDW Standard Deviation 48.6 fL (36.4-46.3); Red Blood Count 4.95 M/uL (4.7-6.1); White Blood Count 26.32 K/uL (4.8-10.8)
[2020-01-31 13:42] LABS: iSTAT Creatinine 1.2 mg/dl (0.6-1.3); iSTAT Hemoglobin 17.3 g/dl (14.0-18.0); iSTAT Ionized Calcium 1.06 mmol/l (1.12-1.32); iSTAT Potassium 3.8 mmol/L (3.3-5.0)
[2020-01-31 13:48] LABS: INR 1.3 (0.9-1.1); Partial Thromboplastin Ratio 1.2; Partial Thromboplastin Time 32.4 Seconds (21.0-31.0); Prothrombin Time 13.9 Seconds (9.0-12.0)
[2020-01-31 13:55] LABS: Albumin Level 3.9 gm/dl (3.4-5.0); BUN Creatinine Ratio 8.8 (10-20); Blood Urea Nitrogen 11 mg/dl (7-18); Calcium 8.9 mg/dl (8.5-10.1); Carbon Dioxide 28 mmol/L (21-32); Chloride 99 mmol/L (98-107); Creatinine Clr Calc Pharmacy 100.2 ml/min; Est GFR (African American) 92.1; Est GFR (Non-African American) 79.5; Glucose 94 mg/dl (70-99); Magnesium 1.7 mg/dl (1.8-2.4); Potassium 3.8 mmol/L (3.5-5.1); Sodium 132 mmol/L (136-145)
--- NOTE | 2020-01-31 13:55 | XRay Report ---
XR chest 1V portable HISTORY: 19 years-old Male SEPSIS acute sepsis COMPARISON: Chest radiographs 09/21/2016 TECHNIQUE: Portable AP view of the chest FINDINGS: Cardiac silhouette is normal. No pneumothorax, large pleural effusion or overt pulmonary. Left greate r than right bilateral mixed interstitial and alveolar opacities. Bones appear normal. IMPRESSION: Left greater than right mixed interstitial and alveolar opacities are suggestive of multi focal pneumonia. Follow-up imaging to document resolution recommended. ACT 112: Negative or not required by law. The above report was generated using voice recognition software. It may contain grammatical, syntax o r spelling errors. Electronically signed by: Miguel Angel Sarkar M.D. 01/31/2020 1:53 PM
[2020-01-31 13:58] LABS: Basophils # (auto) 0.01 K/uL (0-0.2); Eosinophils # (auto) 0.36 K/uL (0-0.5); Eosinophils % (auto) 1.4 %; Immature Granulocytes # (auto) 0.13 K/uL (0.00-0.02); Immature Granulocytes % (auto) 0.5 %; Lymphocytes # (auto) 1.41 K/uL (1.2-3.4); Lymphocytes % (auto) 5.4 %; Monocytes # (auto) 1.68 K/uL (0.11-0.59); Monocytes % (auto) 6.4 %; Neutrophils # (auto) 22.73 K/uL (1.4-6.5); Neutrophils % (auto) 86.3 %
[2020-01-31 14:12] LABS: Alanine Aminotransferase 29 U/L (12-78); Albumin Globulin Ratio 0.8 (0.9-2); Alkaline Phosphatase 79 U/L (45-117); Aspartate Aminotransferase 22 U/L (15-37); Bilirubin,Total 1.1 mg/dl (0.2-1); Globulin 4.8 gm/dl (2.5-4.0); Total Protein 8.7 gm/dl (6.4-8.2); Troponin I < 0.015 ng/ml (0-0.045)
[2020-01-31 14:18] LABS: Influenza A virus by PCR Neg for Influ A (Neg); Influenza B virus by PCR Neg for Influ B (Neg)
[2020-01-31] MEDS ORDERED: KETOROLAC TROMETHAMINE 15 MG/ML VIAL IV ONE (15:46)
[2020-01-31] MEDS ORDERED: LORazepam 1 MG TAB SL STA (16:06)
[2020-01-31 16:35] LABS: Adenovirus PCR Not Detected (NotDetected); Coronavirus 229E PCR Not Detected (NotDetected); Coronavirus HKU1 PCR Not Detected (NotDetected); Coronavirus NL63 PCR Not Detected (NotDetected); Coronavirus OC43PCR Not Detected (NotDetected); Human Metapneumovirus PCR Not Detected (NotDetected); Rhinovirus/Enterovirus PCR Not Detected (NotDetected)
[2020-01-31 16:36] LABS: Bordetella parapertussis PCR Not Detected (NotDetected); Bordetella pertussis PCR Not Detected (NotDetected); Chlamydia pneumoniae PCR Not Detected (NotDetected); Influenza A PCR Not Detected (NotDetected); Influenza B PCR Not Detected (NotDetected); Mycoplasma pneumoniae PCR Not Detected (NotDetected); Parainfluenza Virus 1 PCR Not Detected (NotDetected); Parainfluenza Virus 2 PCR Not Detected (NotDetected); Parainfluenza Virus 3 PCR Not Detected (NotDetected); Parainfluenza Virus 4 PCR Not Detected (NotDetected); Respiratory Syncytial VirusPCR Not Detected (NotDetected)
--- NOTE | 2020-01-31 18:01 | History & Physical Report ---
Date of Service January 31, 2020 Assessment & Plan (1) PNA (pneumonia): Noted on CXR Flu neg viral PCR panel neg with COVID-19 pending Ceftriaxone, azithro started in the ED, will continue Elevated WBC, febrile Isolation precautions Blood cx pending Lactic acid WNL Denies vaping hx Pt is outside of the window of increased suspicion of COVID-19 given onset of sx more than 14 days after travel to [place] Father present, did discuss with him and all questions answered. (2) Anxiety: continue home meds (3) Hypomagnesemia: Replace and monitor (4) Alcohol abuse: Inpt rehab at [facility] x2 weeks Last use was about 3 weeks ago (5) DVT prophylaxis: Ambulation History of Present Illness Primary Care Provider: Mazin Villanueva MD 19 y/o M c/o feeling unwell. Pt states he was having intermittent fevers and chills yesterday and felt generally unwell. He was able to eat without issue. Today, he had n/v and noted that he was SOB and with some anterior chest pain with deep breathing. He was noted by others to be diaphoretic. He states he felt worse overall so he came to the ED. Pt denies abd pain, c/d, LE pain or swelling. Pt states he is feeling better s/p IVF and abx in the ED. Still feels unwell, but better. Pt was in the study abroad program in [place]. He returned 4 weeks ago and had no sx until yesterday. There were 20 others in his program who returned 3 weeks ago. As far as he knows, they are all well. Pt has been in [facility] for alcohol rehab x2 weeks. He had a bit of withdrawal issues early on, but has had no issues for some time now after a valium protocol that is used there. Last alcohol use was about 3 weeks ago. Denies vaping hx. Allergies Allergy/AdvReac Type Severity Reaction Status Date / Time Bactrim AdvReac Mild nausea, SOB Verified 06/16/18 07:57 sulfamethoxazole AdvReac Mild nausea, SOB Verified 01/31/20 16:33 trimethoprim AdvReac Mild nausea, SOB Verified 01/31/20 16:33 Home Medications Home Medications Medication Instructions Recorded Confirmed Type escitalopram oxalate [Lexapro] 10 mg PO QAM 10/18/19 01/31/20 History trazodone 25 mg PO HS PRN 10/18/19 01/31/20 History hydroxyzine pamoate [Vistaril] 25 - 50 mg PO Q8H PRN 01/31/20 01/31/20 History Past Med/Surg History Medical History Acne (Acute) Anxiety Anxiety (Inactive) Fever (Acute) Suicidal ideation (Inactive) Family History Other No pertinent family history in first degree relatives Social History (Updated 01/31/20 @ 17:57 by Estelle Lara DO) Preferred Language: Indonesian Feels Safe at Home: Yes Smoking Status: Never smoker Hx Alcohol Use: Yes (hx of heavy use, none x3 weeks) Hx Substance Use: No Review of Systems Review of Systems: Pertinent positives and negatives reviewed in HPI--all others negative Physical Exam Constitutional: WD/WN, vitals as above Eyes: normal visual burt by confrontation and + anicteric sclerae Neck: normal visual inspection and trachea midline Respiratory: normal respiratory effort; no respiratory distress and no labored breathing Auscultation: + crackles; no wheezes Cardiovascular: Rate/Rhythm: regular rhythm and + tachycardic Gastrointestinal (Abdomen): Inspection/Auscultation: abdomen not distended Percussion/Palpation: abdomen soft; abdomen nontender Musculoskeletal: Head/Neck/Chest: normocephalic and head atraumatic negative for edema, peripheral pulses intact Skin: no rashes, warm and dry Neurologic: awake; not confused Speech / Cognition: normal speech Psychiatric: A+Ox3, euthymic affect Results & Data Vital Signs (Past 12 Hours) Vital Signs Temp Pulse Pulse Resp BP BP Pulse Ox 01/31/20 17:30 106 H 28 H 94 01/31/20 17:20 95 H 34 H 93 01/31/20 17:10 94 H 35 H 91 01/31/20 17:00 102 H 22 92 01/31/20 16:50 119 H 22 89 L 01/31/20 16:40 98 H 93 01/31/20 16:31 103 H 21 94 01/31/20 16:30 105 H 35 H 131/85 93 03/12/20 16:20 106 H 29 H 94 01/31/20 16:10 107 H 26 H 01/31/20 16:00 108 H 135/84 01/31/20 15:50 107 H 21 91 01/31/20 15:40 33 H 90 01/31/20 15:31 108 H 91 01/31/20 15:30 108 H 145/84 H 91 01/31/20 15:20 108 H 92 01/31/20 15:10 105 H 27 H 94 01/31/20 15:07 103 H 26 H 135/69 94 01/31/20 15:01 105 H 95 01/31/20 15:00 107 H 28 H 135/69 93 01/31/20 14:50 113 H 26 H 93 01/31/20 14:40 113 H 25 H 92 01/31/20 14:31 112 H 93 01/31/20 14:30 111 H 145/86 H 93 01/31/20 14:20 116 H 96 01/31/20 14:13 109 H 148/88 H 95 01/31/20 14:10 109 H 94 01/31/20 14:00 113 H 91 01/31/20 13:50 112 H 92 01/31/20 13:40 112 H 92 01/31/20 13:31 116 H 23 131/79 91 01/31/20 13:30 116 H 41 H 92 01/31/20 13:20 119 H 29 H 92 01/31/20 13:15 116 H 30 H 92 01/31/20 13:14 118 H 34 H 151/109 H 93 01/31/20 12:36 38.1 C H 121 H 20 142/90 H 89 L Laboratory Results CXR: multifocal b/l PNA PG Care Time/CCT Total # of Minutes Spent Total Time Spent with Patient: Total time spent is greater than 50% in coordination of care (as documented) at patient's floor/unit and/or counseling patient: Coding Level of Care Code 34448 Initial Inpt Care Lvl 3 Diagnoses PNA (pneumonia) J18.9 Anxiety F41.9 Hypomagnesemia E83.42 Alcohol abuse F10.10 DVT prophylaxis Z29.9
[2020-01-31] MEDS ORDERED: ONDANSETRON INJ 2 MG/ML 2 ML VIAL IV PRN (20:06)
[2020-01-31] MEDS ORDERED: MAGNESIUM HYDROXIDE SUSP 30 ML UDC PO PRN (20:06)
[2020-01-31] MEDS ORDERED: TRAZODONE HCL 50 MG TAB PO PRN (20:06)
[2020-01-31] MEDS: MAGNESIUM SULFATE / D5W 1 GM/100 ML BAG IV SCH ×2 (21:03→22:33)
[2020-01-31] MEDS: NSS + 20MEQ KCL 20 MEQ/1,000 ML BAG IV SCH (21:03)
[2020-02-01] MEDS: ACETAMINOPHEN 325 MG TAB PO PRN ×2 (00:47→08:09)
[2020-02-01] MEDS ORDERED: LORazepam 2 MG/4 ML VIAL ONE (03:57)
[2020-02-01] MEDS ORDERED: LORazepam 0.5 MG/1 ML VIAL IV STA (05:07)
[2020-02-01] MEDS: NSS + 20MEQ KCL 20 MEQ/1,000 ML BAG IV SCH ×2 (06:02→16:13)
[2020-02-01 07:45] LABS: BUN Creatinine Ratio 8.5 (10-20); Creatinine Clr Calc Pharmacy 129.5 ml/min; Est GFR (African American) 121.2; Est GFR (Non-African American) 104.6; Potassium 4.1 mmol/L (3.5-5.1)
[2020-02-01 07:49] LABS: Basophils # (auto) 0.01 K/uL (0-0.2); Basophils % (auto) 0.1 %; Eosinophils % (auto) 2.1 %; Hematocrit (blood only) 40.4 % (42-52); Immature Granulocytes # (auto) 0.11 K/uL (0.00-0.02); Immature Granulocytes % (auto) 0.6 %; Lymphocytes # (auto) 0.84 K/uL (1.2-3.4); Lymphocytes % (auto) 4.3 %; Mean Corpuscular Hemoglobin 32.9 pg (25-34); Mean Corpuscular Hgb Conc 34.7 g/dL (32-36); Mean Corpuscular Volume 95.1 fL (80-100); Mean Platelet Volume 9.8 fL (7.4-10.4); Monocytes % (auto) 4.6 %; Neutrophils # (auto) 17.21 K/uL (1.4-6.5); Neutrophils % (auto) 88.3 %; Platelet Count 213 K/uL (130-400); RDW Coefficient of Variation 13.9 % (11.5-14.5); RDW Standard Deviation 48.2 fL (36.4-46.3); Red Blood Count 4.25 M/uL (4.7-6.1); White Blood Count 19.47 K/uL (4.8-10.8)
[2020-02-01] MEDS: ESCITALOPRAM OXALATE 10 MG TAB PO SCH (08:10)
[2020-02-01] MEDS ORDERED: cefTRIAXone SODIUM 1,000 MG in DEXTROSE 5% 25 ML IV SCH (09:00)
[2020-02-01] MEDS ORDERED: cefTRIAXone SODIUM 2,000 MG in DEXTROSE 5% 50 ML IV SCH (09:00)
[2020-02-01 09:07] LABS: Appearance Urine Clear (Clear); Bacteria Urine Automated Negative (Negative); Blood Urine Negative (Negative); Color Urine Dark Yellow; Glucose Urine UA Negative (Negative); Ketones Urine 1+ (Negative); Leukocyte Esterase Urine Trace (Negative); Nitrite Urine Negative (Negative); Protein Urine 2+ (Negative); RBC Urine Automated 0-4 /hpf (0-4); Specific Gravity Urine 1.024 (1.000-1.030); Urobilinogen Urine Negative (Negative)
[2020-02-01 09:15] LABS: Bilirubin Urine Negative (Negative); Ictotest Urine Negative (Negative)
[2020-02-01] MEDS: AZITHROMYCIN 250 MG in DEXTROSE 5% 250 ML IV SCH (10:26)
--- NOTE | 2020-02-01 11:06 | Hospitalist Progress Note ---
Date of Service February 01, 2020 Assessment & Plan (1) PNA (pneumonia): bilateral, L>R. flu PCR neg. Biofire PCR panel negative for multiple viruses as well as mycoplasma/chlamydia. COVID-19 PCR sent and is pending. last international travel was ~1 month ago (returned from [place], [place] to ). Currently on ceftriaxone, azithromycin IV. Due to severity of illness, potential for more serious gram negative pathogens, etc - broaden rocephin to cefepime 2gm q8h. Cont zithromax for atypical c overage. Send legionella urine antigen. Check MRSA DOCKWORKER swab. Send sputum culture. Blood cx pending but thus far negative. Check procalcitonin. If any clinical worsening repeat cxr. I discussed pt's case with critical care attending in the event patient has any decompensation today. if any worsening dyspnea or escalating O2 requirement would change NC to high- flow NC. (2) Sepsis: 2nd to b/l pneumonia ongoing; WBC count is mildly improved today however repeat CBC in am follow blood cx's; thus far neg (3) Acute respiratory failure with hypoxia: 2nd to b/l pneumonia see "pneumonia" above (4) Abnormal coagulation profile: PT, INR, and PTT all mildly elevated on 01/30 I repeated the coags today -- still mildly elevated 2nd to liver disease in setting of chronic alcohol abuse? coagulopathy from DIC? however platelets are normal nutritional deficiency? other? repeat coags in am repeat LFTs in am cbc in am (5) Anxiety: continue home meds (6) Hypomagnesemia: Replaced and resolved (7) Alcohol abuse: Inpt rehab at [facility] x 2 weeks Last use was about 3 weeks ago no signs/symptoms of etoh withdrawal recommend thiamine, MVI, folic acid supplementation (8) DVT prophylaxis: Ambulation, SCDs father extensively updated outside the pt's room today; all questions answered Admission and Anticipated Discharge Date Admission Date: January 31, 2020 Subjective patient febrile this am and feels poorly. has cough but largely nonproductive. he has mild dyspnea at rest and some with exertion. he feels fatigued, weak, and has poor appetite. when he coughs he has discomfort below the rib cage b/l. no substernal pain or pleuritic chest pain. no abdominal pain, nausea or emesis. had minimal amount of loose stool prior to admission. patient was on a study-abroad program in [place] and came [place] to the [place] about 4 weeks ago. there were ~30 students in the program none of which have developed symptoms of coronavirus. after [place] to the [place] he stayed with his parents in the [place] area - neither have developed fever or respiratory symptoms. due to alcohol abuse he checked himself in to [facility] about 2 weeks ago. some patients there had colds and GI illnesses but none with fever to his knowledge. Review of Systems Constitutional: + fever, + chills, + fatigue, + weakness and + anorexia Respiratory: + cough, + chest congestion, + dyspnea, + dyspnea on exertion and + pain with cough Cardiovascular: no chest pain, no orthopnea, no paroxysmal nocturnal dyspnea a nd no edema Gastrointestinal: no abdominal pain, no nausea, no vomiting and no diarrhea/loose stools Integumentary: no rash Physical Exam Constitutional: + acute distress (mild tachypnea ) and + ill appearing; no altered mental status ENMT: external ear and nose normal, oropharynx normal Respiratory: + retractions (mild subcostal ), + cough and + tachypneic Auscultation: + crackles (extensive - anterior chest, and posteriorly as well; L>R); no wheezes Cardiovascular: Rate/Rhythm: regular rhythm and + tachycardic Heart Sounds: normal S1 and normal S2; no murmur Vessels: posterior tibial pulses present and dorsalis pedis pulses present; no JVD Extremities: no edema Gastrointestinal (Abdomen): normal bowel sounds, soft, nontender, no hepatosplenomegaly Skin: no rashes, warm and dry Psychiatric: Orientation: alert and oriented x 3 Results & Data ([facility]) Vital Signs (Past 12 Hours) Vital Signs Temp Pulse Resp BP Pulse Ox 02/01/20 07:00 37.8 C H 114 H 24 120/48 L 91 02/01/20 06:03 37.1 C 115 H 20 97/60 L 90 02/01/20 03:03 37.1 C 109 H 18 122/66 94 02/01/20 00:40 39.4 C H 116 H 18 121/66 89 L Laboratory Results Laboratory Results - last 24 hr 01/31/20 01/31/20 01/31/20 13:20 13:22 13:22 WBC 26.32 H RBC 4.95 Hgb 16.9 POC Hgb Hct 47.5 POC Hct MCV 96.0 MCH 34.1 H MCHC 35.6 RDW Std Deviation 48.6 H RDW Coeff of Candace 13.8 Plt Count 250 MPV 9.8 Immature Gran % (Auto) 0.5 Neut % (Auto) 86.3 Lymph % (Auto) 5.4 [place] % (Auto) 6.4 Eos % (Auto) 1.4 Baso % (Auto) 0.0 Immature Gran # (Auto) 0.13 H Neut # (Auto) 22.73 H Lymph # (Auto) 1.41 [place] # (Auto) 1.68 H Eos # (Auto) 0.36 Baso # (Auto) 0.01 PT 13.9 H INR 1.3 H APTT 32.4 H PTT Ratio 1.2 POC Sodium Sodium POC Potassium Potassium POC Chloride Chloride Carbon Dioxide POC Total CO2 Anion Gap POC Anion Gap POC BUN BUN Creatinine POC Creatinine Est Cr Clr Drug Dosing Est GFR ( Amer) Est GFR (Non-Af Amer) BUN/Creatinine Ratio Glucose POC Glucose (other) Lactate Calcium POC Ioniz Calcium An Magnesium Total Bilirubin AST ALT Alkaline Phosphatase Troponin I Total Protein Albumin Globulin Albumin/Globulin Ratio Urine Color Urine Appearance Urine pH Ur Specific Sch[place]ield Urine Protein Urine Glucose (UA) Urine Ketones Urine Blood Urine Nitrite Urine Bilirubin Urine Urobilinogen Ur Leukocyte Esterase Urine WBC (Auto) Urine RBC (Auto) U Hyaline Cast (Auto) U Epithel Cells (Auto) Urine Bacteria (Auto) Adenovirus (PCR) B. pertussis DNA (PCR) B.parapertussis DNA PCR C. pneumoniae DNA (PCR) Coronavirus (PCR) Coronavirus OC43 (PCR) Coronavirus HKU1 (PCR) Coronavirus 229E (PCR) Coronavirus NL63 (PCR) Human Metapneumovir PCR Influenza Type A (PCR) Neg for Influ A Influenza Type B (PCR) Neg for Influ B M. pneumoniae (PCR) Parainfluenza 1 (PCR) Parainfluenza 2 (PCR) Parainfluenza 3 (PCR) Parainfluenza 4 (PCR) RSV (PCR) Respiratory Virus Sourc Entero/Rhino (PCR) Misc Test Comment 01/31/20 01/31/20 01/31/20 13:22 13:29 13:58 WBC RBC Hgb POC Hgb 17.3 Hct POC Hct 51 MCV MCH MCHC RDW Std Deviation RDW Coeff of Candace Plt Count MPV Immature Gran % (Auto) Neut % (Auto) Lymph % (Auto) [place] % (Auto) Eos % (Auto) Baso % (Auto) Immature Gran # (Auto) Neut # (Auto) Lymph # (Auto) [place] # (Auto) Eos # (Auto) Baso # (Auto) PT INR APTT PTT Ratio POC Sodium 135 Sodium 132 L POC Potassium 3.8 Potassium 3.8 POC Chloride 96 L Chloride 99 Carbon Dioxide 28 POC Total CO2 29 Anion Gap 5.0 POC Anion Gap 14.0 L POC BUN 11 BUN 11 Creatinine 1.28 POC Creatinine 1.2 Est Cr Clr Drug Dosing 100.2 Est GFR ( Amer) 92.1 Est GFR (Non-Af Amer) 79.5 BUN/Creatinine Ratio 8.8 L Glucose 94 POC Glucose (other) 94 Lactate 1.4 Calcium 8.9 POC Ioniz Calcium An 1.06 L Magnesium 1.7 L Total Bilirubin 1.1 H AST 22 ALT 29 Alkaline Phosphatase 79 Troponin I < 0.015 Total Protein 8.7 H Albumin 3.9 Globulin 4.8 H Albumin/Globulin Ratio 0.8 L Urine Color Urine Appearance Urine pH Ur Specific [place] Urine Protein Urine Glucose (UA) Urine Ketones Urine Blood Urine Nitrite Urine Bilirubin Urine Urobilinogen Ur Leukocyte Esterase Urine WBC (Auto) Urine RBC (Auto) U Hyaline Cast (Auto) U Epithel Cells (Auto) Urine Bacteria (Auto) Adenovirus (PCR) B. pertussis DNA (PCR) B.parapertussis DNA PCR C. pneumoniae DNA (PCR) Coronavirus (PCR) Coronavirus OC43 (PCR) Coronavirus HKU1 (PCR) Coronavirus 229E (PCR) Coronavirus NL63 (PCR) Human Metapneumovir PCR Influenza Type A (PCR) Influenza Type B (PCR) M. pneumoniae (PCR) Parainfluenza 1 (PCR) Parainfluenza 2 (PCR) Parainfluenza 3 (PCR) Parainfluenza 4 (PCR) RSV (PCR) Respiratory Virus Sourc Entero/Rhino (PCR) Misc Test Comment 01/31/20 01/31/20 02/01/20 15:00 15:00 06:50 WBC 19.47 H RBC 4.25 L Hgb 14.0 POC Hgb Hct 40.4 L POC Hct MCV 95.1 MCH 32.9 MCHC 34.7 RDW Std Deviation 48.2 H RDW Coeff of Candace 13.9 Plt Count 213 MPV 9.8 Immature Gran % (Auto) 0.6 Neut % (Auto) 88.3 Lymph % (Auto) 4.3 [place] % (Auto) 4.6 Eos % (Auto) 2.1 Baso % (Auto) 0.1 Immature Gran # (Auto) 0.11 H Neut # (Auto) 17.21 H Lymph # (Auto) 0.84 L [place] # (Auto) 0.90 H Eos # (Auto) 0.40 Baso # (Auto) 0.01 PT INR APTT PTT Ratio POC Sodium Sodium POC Potassium Potassium POC Chloride Chloride Carbon Dioxide POC Total CO2 Anion Gap POC Anion Gap POC BUN BUN Creatinine POC Creatinine Est Cr Clr Drug Dosing Est GFR ( Amer) Est GFR (Non-Af Amer) BUN/Creatinine Ratio Glucose POC Glucose (other) Lactate Calcium POC Ioniz Calcium An Magnesium Total Bilirubin AST ALT Alkaline Phosphatase Troponin I Total Protein Albumin Globulin Albumin/Globulin Ratio Urine Color Urine Appearance Urine pH Ur Specific [place] Urine Protein Urine Glucose (UA) Urine Ketones Urine Blood Urine Nitrite Urine Bilirubin Urine Urobilinogen Ur Leukocyte Esterase Urine WBC (Auto) Urine RBC (Auto) U Hyaline Cast (Auto) U Epithel Cells (Auto) Urine Bacteria (Auto) Adenovirus (PCR) Not Detected B. pertussis DNA (PCR) Not Detected B.parapertussis DNA PCR Not Detected C. pneumoniae DNA (PCR) Not Detected Coronavirus (PCR) Pending Coronavirus OC43 (PCR) Not Detected Coronavirus HKU1 (PCR) Not Detected Coronavirus 229E (PCR) Not Detected Coronavirus NL63 (PCR) Not Detected Human Metapneumovir PCR Not Detected Influenza Type A (PCR) Not Detected Influenza Type B (PCR) Not Detected M. pneumoniae (PCR) Not Detected Parainfluenza 1 (PCR) Not Detected Parainfluenza 2 (PCR) Not Detected Parainfluenza 3 (PCR) Not Detected Parainfluenza 4 (PCR) Not Detected RSV (PCR) Not Detected Respiratory Virus Sourc Pending Entero/Rhino (PCR) Not Detected Misc Test Comment Pending 02/01/20 02/01/20 06:50 08:45 WBC RBC Hgb POC Hgb Hct POC Hct MCV MCH MCHC RDW Std Deviation RDW Coeff of Candace Plt Count MPV Immature Gran % (Auto) Neut % (Auto) Lymph % (Auto) [place] % (Auto) Eos % (Auto) Baso % (Auto) Immature Gran # (Auto) Neut # (Auto) Lymph # (Auto) [place] # (Auto) Eos # (Auto) Baso # (Auto) PT INR APTT PTT Ratio POC Sodium Sodium 134 L POC Potassium Potassium 4.1 POC Chloride Chloride 105 Carbon Dioxide 24 POC Total CO2 Anion Gap 5.0 POC Anion Gap POC BUN BUN 9 Creatinine 1.02 POC Creatinine Est Cr Clr Drug Dosing 129.5 Est GFR ( Amer) 121.2 Est GFR (Non-Af Amer) 104.6 BUN/Creatinine Ratio 8.5 L Glucose 95 POC Glucose (other) Lactate Calcium 8.0 L POC Ioniz Calcium An Magnesium Total Bilirubin AST ALT Alkaline Phosphatase Troponin I Total Protein Albumin Globulin Albumin/Globulin Ratio Urine Color Dark Yellow Urine Appearance Clear Urine pH 6.0 Ur Specific [place] 1.024 Urine Protein 2+ H Urine Glucose (UA) Negative Urine Ketones 1+ H Urine Blood Negative Urine Nitrite Negative Urine Bilirubin Negative Urine Urobilinogen Negative Ur Leukocyte Esterase Trace H Urine WBC (Auto) 1-5 Urine RBC (Auto) 0-4 U Hyaline Cast (Auto) 1-5 U Epithel Cells (Auto) 10-20 H Urine Bacteria (Auto) Negative Adenovirus (PCR) B. pertussis DNA (PCR) B.parapertussis DNA PCR C. pneumoniae DNA (PCR) Coronavirus (PCR) Coronavirus OC43 (PCR) Coronavirus HKU1 (PCR) Coronavirus 229E (PCR) Coronavirus NL63 (PCR) Human Metapneumovir PCR Influenza Type A (PCR) Influenza Type B (PCR) M. pneumoniae (PCR) Parainfluenza 1 (PCR) Parainfluenza 2 (PCR) Parainfluenza 3 (PCR) Parainfluenza 4 (PCR) RSV (PCR) Respiratory Virus Sourc Entero/Rhino (PCR) Misc Test Comment PG Care Time/CCT Total # of Minutes Spent Total Time Spent with Patient: Total time spent is greater than 50% in coordination of care (as documented) at patient's floor/unit and/or counseling patient: Coding Level of Care Code 54280 Subseq Hosp Care Lvl 3 Diagnoses PNA (pneumonia) J18.9 Pneumonia type: due to unspecified organism Laterality: bilateral Lung location: unspecified part of lung Sepsis A41.9 Sepsis acute organ dysfunction status: unspecified Sepsis type: sepsis due to unspecified organism Acute respiratory failure with hypoxia J96.01 Abnormal coagulation profile R79.1 Anxiety F41.9 Hypomagnesemia E83.42 Alcohol abuse F10.10 DVT prophylaxis Z29.9 (1) PNA (pneumonia) Pneumonia type: due to unspecified organism Laterality: bilateral Lung location: unspecified part of lung Qualified Code(s): J18.9 - Pneumonia, unspecified organism (2) Sepsis Sepsis acute organ dysfunction status: unspecified Sepsis type: sepsis due to unspecified organism Qualified Code(s): A41.9 - Sepsis, unspecified organism
[2020-02-01 11:47] LABS: INR 1.3 (0.9-1.1); Partial Thromboplastin Ratio 1.4; Partial Thromboplastin Time 37.7 Seconds (21.0-31.0); Prothrombin Time 13.7 Seconds (9.0-12.0)
[2020-02-01] MEDS: CEFEPIME 2,000 MG in SYRINGE 7.5 ML IV SCH ×2 (13:23→19:53)
[2020-02-01] MEDS ORDERED: CEFEPIME 1,000 MG in SYRINGE 0 ML IV SCH (14:00)
--- NOTE | 2020-02-01 16:17 | Electrocardiogram Report ---
Test Reason : Blood Pressure : / mmHG Vent. Rate : 113 BPM Atrial Rate : 113 BPM P-R Int : 138 ms QRS Dur : 106 ms QT Int : 310 ms P-R-T Axes : 038 088 -09 degrees QTc Int : 425 ms Sinus tachycardia Incomplete right bundle branch block T wave abnormality, consider inferior ischemia Abnormal ECG When compared with ECG of 01-AUG-2015 08:42, Inverted T waves have replaced nonspecific T wave abnormality in Inferior leads Confirmed by Brad Laureano ([id number]) on 02/01/2020 4:16:51 PM Referred By: REFERRED SELF Confirmed By:Brad Laureano
[2020-02-01] MEDS: KETOROLAC 30 MG/ML VIAL IV PRN ×2 (17:40→23:33)
[2020-02-02] MEDS: NSS + 20MEQ KCL 20 MEQ/1,000 ML BAG IV SCH ×2 (01:17→11:57)
[2020-02-02] MEDS: ACETAMINOPHEN 325 MG TAB PO PRN (02:42)
[2020-02-02] MEDS: CEFEPIME 2,000 MG in SYRINGE 7.5 ML IV SCH ×3 (03:09→19:58)
[2020-02-02] MEDS: guaiFENesin SUGAR FREE 100 MG/5 ML UDC PO PRN ×2 (04:09→23:31)
[2020-02-02 06:03] LABS: Basophils # (auto) 0.01 K/uL (0-0.2); Basophils % (auto) 0.1 %; Eosinophils # (auto) 0.79 K/uL (0-0.5); Eosinophils % (auto) 5.6 %; Hematocrit (blood only) 43.2 % (42-52); Hemoglobin 14.6 g/dL (14.0-18.0); Immature Granulocytes # (auto) 0.05 K/uL (0.00-0.02); Immature Granulocytes % (auto) 0.4 %; Lymphocytes # (auto) 1.35 K/uL (1.2-3.4); Lymphocytes % (auto) 9.6 %; Mean Corpuscular Hemoglobin 32.7 pg (25-34); Mean Corpuscular Hgb Conc 33.8 g/dL (32-36); Mean Corpuscular Volume 96.6 fL (80-100); Mean Platelet Volume 10.2 fL (7.4-10.4); Monocytes # (auto) 0.95 K/uL (0.11-0.59); Monocytes % (auto) 6.7 %; Neutrophils # (auto) 10.94 K/uL (1.4-6.5); Neutrophils % (auto) 77.6 %; Platelet Count 245 K/uL (130-400); RDW Coefficient of Variation 13.9 % (11.5-14.5); RDW Standard Deviation 49.4 fL (36.4-46.3); Red Blood Count 4.47 M/uL (4.7-6.1); White Blood Count 14.09 K/uL (4.8-10.8)
[2020-02-02 06:11] LABS: INR 1.2 (0.9-1.1); Partial Thromboplastin Ratio 1.2; Partial Thromboplastin Time 34.5 Seconds (21.0-31.0); Prothrombin Time 12.4 Seconds (9.0-12.0)
[2020-02-02 06:31] LABS: Albumin Level 2.7 gm/dl (3.4-5.0); Calcium 8.3 mg/dl (8.5-10.1); Creatinine Clr Calc Pharmacy 143.5 ml/min; Est GFR (African American) 137.3; Est GFR (Non-African American) 118.5; Potassium 4.5 mmol/L (3.5-5.1)
[2020-02-02 06:38] LABS: Albumin Globulin Ratio 0.6 (0.9-2); Bilirubin,Total 0.9 mg/dl (0.2-1); Globulin 4.4 gm/dl (2.5-4.0); Total Protein 7.1 gm/dl (6.4-8.2)
[2020-02-02] MEDS: ESCITALOPRAM OXALATE 10 MG TAB PO SCH (08:50)
[2020-02-02] MEDS: CEROVITE ADV FORMULA TAB PO SCH (08:51)
[2020-02-02] MEDS: AZITHROMYCIN 250 MG in DEXTROSE 5% 250 ML IV SCH (08:51)
[2020-02-02] MEDS: FOLIC ACID 1 MG TAB PO SCH (08:51)
[2020-02-02] MEDS: THIAMINE HCL 100 MG TAB PO SCH ×2 (08:51→20:04)
[2020-02-02] MEDS: KETOROLAC 30 MG/ML VIAL IV PRN ×2 (11:57→19:58)
--- NOTE | 2020-02-02 19:17 | Hospitalist Progress Note ---
Date of Service February 02, 2020 Assessment & Plan (1) PNA (pneumonia): bilateral, L>R. Clinically improving. I am pleased with his improvement. O2 being weaned. flu PCR neg. Biofire PCR panel negative for multiple viruses as well as mycoplasma/chlamydia. COVID-19 PCR sent and is pending. last international travel was ~1 month ago (returned from [place], [place] to [place]- [place]). Currently on cefepime and azithromycin IV. Day #2-3/7 of abx. Legionella urine antigen pending. 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 Sputum culture neg. If any clinical worsening repeat cxr. I discussed pt's case with critical care attending on 01/31 in the event patient has any decompensation moving forward. (2) Sepsis: 2nd to b/l pneumonia resolving leukocytosis cont to improve blood cx's neg fever curve downtrending (3) Acute respiratory failure with hypoxia: 2nd to b/l pneumonia see "pneumonia" above IMPROVING wean O2 as tolerated (4) Abnormal coagulation profile: PT, INR, and PTT all mildly elevated on 01/30 they are modestly improved today LFTs wnl 2nd to liver disease in setting of chronic alcohol abuse? coagulopathy from [facility]IC? however platelets are normal nutritional deficiency? other? suspect due to recent alcohol use and ?transient liver dysfunction would repeat coags in 48 hours for stability (5) Anxiety: continue home meds (6) Hypomagnesemia: Replaced and resolved (7) Alcohol abuse: Inpt rehab at [facility] x 2 weeks Last use was about 3 weeks ago no signs/symptoms of etoh withdrawal cont thiamine, MVI, folic acid supplementation (8) DVT prophylaxis: Ambulation, SCDs low risk father extensively updated by phone today; all questions answered told him I am happy with his son's progress can likely d/c fluids later today Admission and Anticipated Discharge Date Admission Date: January 31, 2020 Subjective patient overall feeling better today. less cough. less discomfort over the chest and subcostal regions when he coughs. energy is improved; he is ambulating to the bathroom. no diarrhea, nausea or emesis. appetite improved relative to yesterday. spoke with pt's father by phone - neither him nor his are exhibiting any infectious symptoms. NC O2 - was weaned to 4 liters prior to my arrival; O2 sats mid to upper 90s on such. I then weaned him to 3 liters - 02 sats stayed 94% or above. patient also stated that the students who were with him in [place] - still none have developed coronavirus. Review of Systems Constitutional: + fever and + weakness; no chills, no body aches and no anorexia Respiratory: + dyspnea on exertion (much improved from previous ) and + sputum production (minimal); no hemoptysis and no wheezing Cardiovascular: as per Subjective / HPI and + orthopnea Gastrointestinal: no abdominal pain, no nausea and no vomiting Physical Exam Constitutional: + ill appearing (but much better than yesterday ); no acute distress and no altered mental status ENMT: external ear and nose normal, oropharynx normal Respiratory: no respiratory distress and not tachypneic Auscultation: + crackles (mainly left base today; right hemithorax relatively clear); no wheezes Cardiovascular: Rate/Rhythm: regular rhythm and + tachycardic Heart Sounds: normal S1 and normal S2; no murmur Vessels: posterior tibial pulses present and dorsalis pedis pulses present; no JVD Extremities: no edema Gastrointestinal (Abdomen): normal bowel sounds, soft, nontender, no hepatosplenomegaly Skin: no rashes, warm and dry Psychiatric: Orientation: alert and oriented x 3 Results & Data ([facility]) Vital Signs (Past 12 Hours) Vital Signs Temp Pulse Pulse Resp BP Pulse Ox 02/02/20 16:00 36.9 C 109 H 105 H 24 125/80 99 02/02/20 12:00 36.9 C 104 H 24 119/78 96 02/02/20 08:00 36.9 C 109 H 108 H 24 119/78 97 Laboratory Results Laboratory Results - last 24 hr 02/02/20 02/02/20 02/02/20 05:38 05:38 05:38 WBC 14.09 H RBC 4.47 L Hgb 14.6 Hct 43.2 MCV 96.6 MCH 32.7 MCHC 33.8 RDW Std Deviation 49.4 H RDW Coeff of Candace 13.9 Plt Count 245 MPV 10.2 Immature Gran % (Auto) 0.4 Neut % (Auto) 77.6 Lymph % (Auto) 9.6 [place] % (Auto) 6.7 Eos % (Auto) 5.6 Baso % (Auto) 0.1 Immature Gran # (Auto) 0.05 H Neut # (Auto) 10.94 H Lymph # (Auto) 1.35 [place] # (Auto) 0.95 H Eos # (Auto) 0.79 H Baso # (Auto) 0.01 PT 12.4 H INR 1.2 H APTT 34.5 H PTT Ratio 1.2 Sodium 138 Potassium 4.5 Chloride 109 H Carbon Dioxide 25 Anion Gap 4.0 BUN 7 Creatinine 0.92 Est Cr Clr Drug Dosing 143.5 Est GFR ( Amer) 137.3 Est GFR (Non-Af Amer) 118.5 BUN/Creatinine Ratio 8.0 L Glucose 90 Calcium 8.3 L Total Bilirubin 0.9 AST 16 ALT 21 Alkaline Phosphatase 53 Total Protein 7.1 Albumin 2.7 L Globulin 4.4 H Albumin/Globulin Ratio 0.6 L Diagnostic Findings blood cx's neg sputum cx neg legionella urine ag pending covid-19 pending MRSA neg PG Care Time/CCT Total # of Minutes Spent Total Time Spent with Patient: Total time spent is greater than 50% in coordination of care (as documented) at patient's floor/unit and/or counseling patient: Coding Level of Care Code 54720 Subseq Hosp Care Lvl 2 Diagnoses PNA (pneumonia) J18.9 Pneumonia type: due to unspecified organism Laterality: bilateral Lung location: unspecified part of lung Sepsis A41.9 Sepsis acute organ dysfunction status: unspecified Sepsis type: sepsis due to unspecified organism Acute respiratory failure with hypoxia J96.01 Abnormal coagulation profile R79.1 Anxiety F41.9 Hypomagnesemia E83.42 Alcohol abuse F10.10 DVT prophylaxis Z29.9 (1) PNA (pneumonia) Pneumonia type: due to unspecified organism Laterality: bilateral Lung location: unspecified part of lung Qualified Code(s): J18.9 - Pneumonia, unspecified organism (2) Sepsis Sepsis acute organ dysfunction status: unspecified Sepsis type: sepsis due to unspecified organism Qualified Code(s): A41.9 - Sepsis, unspecified organism
[2020-02-03] MEDS: KETOROLAC 30 MG/ML VIAL IV PRN (02:25)
[2020-02-03] MEDS: CEFEPIME 2,000 MG in SYRINGE 7.5 ML IV SCH ×3 (03:23→20:33)
[2020-02-03 07:14] LABS: Hematocrit (blood only) 41.5 % (42-52); Hemoglobin 14.5 g/dL (14.0-18.0); Mean Corpuscular Hemoglobin 32.9 pg (25-34); Mean Corpuscular Hgb Conc 34.9 g/dL (32-36); Mean Corpuscular Volume 94.1 fL (80-100); Mean Platelet Volume 9.9 fL (7.4-10.4); Platelet Count 256 K/uL (130-400); RDW Standard Deviation 48.3 fL (36.4-46.3); Red Blood Count 4.41 M/uL (4.7-6.1); White Blood Count 9.73 K/uL (4.8-10.8)
[2020-02-03 07:40] LABS: BUN Creatinine Ratio 8.3 (10-20); Calcium 8.5 mg/dl (8.5-10.1); Creatinine Clr Calc Pharmacy 145.1 ml/min; Est GFR (African American) 139.1; Potassium 4.4 mmol/L (3.5-5.1)
[2020-02-03] MEDS: CEROVITE ADV FORMULA TAB PO SCH (08:17)
[2020-02-03] MEDS: ESCITALOPRAM OXALATE 10 MG TAB PO SCH (08:18)
[2020-02-03] MEDS: FOLIC ACID 1 MG TAB PO SCH (08:18)
[2020-02-03] MEDS: THIAMINE HCL 100 MG TAB PO SCH ×2 (08:18→20:34)
[2020-02-03] MEDS: AZITHROMYCIN 250 MG in DEXTROSE 5% 250 ML IV SCH (10:45)
--- NOTE | 2020-02-03 17:28 | Hospitalist Progress Note ---
Date of Service February 03, 2020 Assessment & Plan (1) PNA (pneumonia): bilateral, L>R. improving/resolving. Patient feels and looks very well today. O2 has been weaned off. flu PCR neg. Biofire PCR panel negative for multiple viruses as well as mycoplasma/chlamydia. COVID-19 PCR sent and is pending. Legionella urine antigen pending. last international travel was ~1 month ago (returned from [facility] to mid- December). Currently on cefepime and azithromycin IV. Day #3-/7 of abx. Will d/c IV antibiotics later today. Change to levaquin PO in the am and finish course (total 7 days). 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 Sputum culture neg. (2) Sepsis: 2nd to b/l pneumonia resolved blood cx's negative no fever in over 36 hours (3) Acute respiratory failure with hypoxia: 2nd to b/l pneumonia see "pneumonia" above resolved O2 has been weaned off (4) Abnormal coagulation profile: PT, INR, and PTT all mildly elevated on 01/30 repeat again on 01/31 mildly elevated LFTs wnl on 02/01 2nd to liver disease in setting of chronic alcohol abuse? nutritional deficiency? other? suspect due to recent alcohol use and ?transient liver dysfunction repeat coags tomorrow AM to ensure resolution (5) Anxiety: continue home meds (6) Hypomagnesemia: Replaced and resolved (7) Alcohol abuse: Was hospitalized briefly in [facility] for alcohol withdrawal in early December just prior to returning to the . Then attended inpatient rehab at [facility] x 2 weeks (just prior to this admission) Last use was about 3 weeks ago no signs/symptoms of etoh withdrawal during this stay cont thiamine, MVI, folic acid supplementation patient admits to 6-12 beers at a time several times/week parents very supportive of his sobriety (8) DVT prophylaxis: Ambulation, SCDs low risk father and mother extensively updated today outside the pt's room questions answered I suspect patient can d/c home tomorrow on levaquin PO and, while awaiting COVID-19 testing, should remain in isolation at HOME until his test returns (should be back Tuesday or Tuesday of this week according to our lab - sent to [facility]) Would check with infection control Tuesday to ensure plan above is appropriate Admission and Anticipated Discharge Date Admission Date: January 31, 2020 Anticipated date of discharge: 02/04/20 Subjective Patient feeling very well today. NC O2 has been weaned off as of this am. Tele normal overnight. Minimal cough. No dyspnea or OVERTON. Subcostal pain is largely resolved. No diarrhea. No abdominal pain. Eating has returned to normal. Review of Systems Constitutional: no fever, no chills, no fatigue and no anorexia Respiratory: + cough; no dyspnea, no dyspnea on exertion, no hemoptysis and no wheezing Cardiovascular: no chest pain, no dyspnea on exertion, no orthopnea and no paroxysmal nocturnal dyspnea Gastrointestinal: no abdominal pain Physical Exam Constitutional: no acute distress, not ill appearing (looks very good today ) and no altered mental status ENMT: external ear and nose normal, oropharynx normal Respiratory: no respiratory distress and not tachypneic Auscultation: + diminished lung sounds (bases) and + crackles (left base only; remaining portions of lung clear); no wheezes Cardiovascular: Rate/Rhythm: regular rate and regular rhythm Heart Sounds: normal S1 and normal S2; no murmur Vessels: posterior tibial pulses present and dorsalis pedis pulses present; no JVD Extremities: no edema Gastrointestinal (Abdomen): normal bowel sounds, soft, nontender, no hepatosplenomegaly Skin: no rashes, warm and dry Psychiatric: Orientation: alert and oriented x 3 Results & Data ([facility]) Vital Signs (Past 12 Hours) Vital Signs Temp Pulse Pulse Resp BP Pulse Ox 02/03/20 17:01 36.9 C 90 22 139/84 93 02/03/20 16:00 98 H 02/03/20 12:39 36.6 C 94 H 22 125/84 99 02/03/20 08:00 36.8 C 88 106 H 22 134/84 95 Laboratory Results Laboratory Results - last 24 hr 02/03/20 02/03/20 06:57 06:57 WBC 9.73 RBC 4.41 L Hgb 14.5 Hct 41.5 L MCV 94.1 MCH 32.9 MCHC 34.9 RDW Std Deviation 48.3 H RDW Coeff of Candace 14.0 Plt Count 256 MPV 9.9 Sodium 139 Potassium 4.4 Chloride 109 H Carbon Dioxide 26 Anion Gap 4.0 BUN 8 Creatinine 0.91 Est Cr Clr Drug Dosing 145.1 Est GFR ( Amer) 139.1 Est GFR (Non-Af Amer) 120.0 BUN/Creatinine Ratio 8.3 L Glucose 90 Calcium 8.5 Diagnostic Findings blood cx's negative to date legionella Ag pending COVID-19 PCR pending PG Care Time/CCT Total # of Minutes Spent Total Time Spent with Patient: Total time spent is greater than 50% in coordination of care (as documented) at patient's floor/unit and/or counseling patient: Coding Level of Care Code 50464 Subseq Hosp Care Lvl 2 Diagnoses PNA (pneumonia) J18.9 Pneumonia type: due to unspecified organism Laterality: bilateral Lung location: unspecified part of lung Sepsis A41.9 Sepsis acute organ dysfunction status: unspecified Sepsis type: sepsis due to unspecified organism Acute respiratory failure with hypoxia J96.01 Abnormal coagulation profile R79.1 Anxiety F41.9 Hypomagnesemia E83.42 Alcohol abuse F10.10 DVT prophylaxis Z29.9 (1) PNA (pneumonia) Pneumonia type: due to unspecified organism Laterality: bilateral Lung location: unspecified part of lung Qualified Code(s): J18.9 - Pneumonia, unspecified organism (2) Sepsis Sepsis acute organ dysfunction status: unspecified Sepsis type: sepsis due to unspecified organism Qualified Code(s): A41.9 - Sepsis, unspecified organism
[2020-02-03] MEDS: LACTOBACILLUS ACIDOPHILUS (FLORANEX) TAB PO SCH (20:33)
[2020-02-03] MEDS: guaiFENesin SUGAR FREE 100 MG/5 ML UDC PO PRN (23:40)
[2020-02-04 05:57] LABS: INR 1.1 (0.9-1.1); Partial Thromboplastin Ratio 1.1; Partial Thromboplastin Time 31.1 Seconds (21.0-31.0); Prothrombin Time 11.9 Seconds (9.0-12.0)
[2020-02-04 06:16] LABS: BUN Creatinine Ratio 8.1 (10-20); Calcium 8.7 mg/dl (8.5-10.1); Creatinine Clr Calc Pharmacy 145.1 ml/min; Est GFR (African American) 139.1
[2020-02-04] MEDS: LACTOBACILLUS ACIDOPHILUS (FLORANEX) TAB PO SCH ×2 (08:03→11:14)
[2020-02-04] MEDS: FOLIC ACID 1 MG TAB PO SCH (08:04)
[2020-02-04] MEDS: CEROVITE ADV FORMULA TAB PO SCH (08:04)
[2020-02-04] MEDS: ESCITALOPRAM OXALATE 10 MG TAB PO SCH (08:04)
[2020-02-04] MEDS: THIAMINE HCL 100 MG TAB PO SCH (08:05)
--- NOTE | 2020-02-04 09:31 | Discharge Summary ---
Date of Service February 04, 2020 Admission HPI Per Admitting Provider 19 y/o M c/o feeling unwell. Pt states he was having intermittent fevers and chills yesterday and felt generally unwell. He was able to eat without issue. Today, he had n/v and noted that he was SOB and with some anterior chest pain with deep breathing. He was noted by others to be diaphoretic. He states he felt worse overall so he came to the ED. Pt denies abd pain, c/d, LE pain or swelling. Pt states he is feeling better s/p IVF and abx in the ED. Still feels unwell, but better. Pt was in the study abroad program in [place]. He returned 4 weeks ago and had no sx until yesterday. There were 20 others in his program who returned 3 weeks ago. As far as he knows, they are all well. Pt has been in [facility] for alcohol rehab x2 weeks. He had a bit of withdrawal issues early on, but has had no issues for some time now after a valium protocol that is used there. Last alcohol use was about 3 weeks ago. Denies vaping hx. Principal Diagnosis Multifocal pneumonia Discharge Exam Constitutional WD/WN, vitals as above Eyes PERRL, conjunctivae normal, anicteric sclerae ENMT external ear and nose normal, oropharynx normal Neck trachea midline, no thyromegaly Respiratory normal respiratory effort, lungs clear to auscultation Cardiovascular RRR, no murmur, no edema Gastrointestinal (Abdomen) normal bowel sounds, soft, nontender, no hepatosplenomegaly Musculoskeletal no cyanosis or clubbing, extremities motor strength 5/5 Skin no rashes, warm and dry Neurologic patellar DTR's 2+ bilat, sensation intact and PERRL, EOMI, accommodation nl, no face palsy, no dysarthria Psychiatric A+Ox3, euthymic affect Lymphatic no cervical or axillary lymphadenopathy Discharge Data Allergies Allergy/AdvReac Type Severity Reaction Status Date / Time Bactrim AdvReac Mild nausea, SOB Verified 06/16/18 07:57 sulfamethoxazole AdvReac Mild nausea, SOB Verified 01/31/20 16:33 trimethoprim AdvReac Mild nausea, SOB Verified 01/31/20 16:33 Consultations 01/31/20 14:34 ED Decision to Admit Stat Hospital Course (1) PNA (pneumonia): bilateral, L>R. improving/resolving. Patient feels and looks very well the past two days, off of oxygen no distress on day of discharge, wanted to go home flu PCR neg. Biofire PCR panel negative for multiple viruses as well as mycoplasma/chlamydia. COVID-19 PCR sent and is pending. Legionella urine antigen pending. last international travel was ~1 month ago (returned from [facility] to mid- December). treated with cefepime and azithromycin IV. Change to levaquin PO and finish course (total 7 days). 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 Sputum culture neg. patient given strict instructions to quarantine in his home until results of the COVID 19 are back (2) Sepsis: 2nd to b/l pneumonia resolved blood cx's negative no fever in over 48 hours (3) Acute respiratory failure with hypoxia: 2nd to b/l pneumonia see "pneumonia" above resolved O2 has been weaned off (4) Abnormal coagulation profile: PT, INR, and PTT all mildly elevated on 01/30 repeat again on 01/31 mildly elevated LFTs wnl on 02/01 2nd to liver disease in setting of chronic alcohol abuse? nutritional deficiency? other? suspect due to recent alcohol use and ?transient liver dysfunction can follow as outpatient on routine basis (5) Anxiety: continue home meds (6) Hypomagnesemia: Replaced and resolved (7) Alcohol abuse: Was hospitalized briefly in [facility] for alcohol withdrawal in early December just prior to returning to the . Then attended inpatient rehab at [facility] x 2 weeks (just prior to this admis linda) Last use was about 3 weeks ago no signs/symptoms of etoh withdrawal during this stay cont thiamine, MVI, folic acid supplementation while admitted he is eating well, no need to supplement on discharge patient admits to 6-12 beers at a time several times/week parents very supportive of his sobriety (8) DVT prophylaxis: Ambulation, SCDs low risk Total Time Total Time Spent Total Time Spent (In Minutes): 33 minutes Total Time Includes: Examination of the Patient, Discharge Planning, Medication Reconciliation and Communication With Other Providers (infection control) Discharge Plan Discharge Items Patient Disposition: Home - Self-Care Reason For Visit: PNA Discharge Diagnosis: Pneumonia, viral vs bacterial Condition on Discharge: Good Health Concerns: remain in quarantine until COVID 19 testing is back Goals: improve nutrition and hydration get rest and improve strength complete course of Levaquin Activity: Per Instructions section Activity Comment: Remain in quarantine until notified otherwise Lifting: None Bathing: No limitations Driving/Machine Use: No limitations Non-emergency contact: Primary Care Provider Call non-emergency contact if: you have any medication questions, your symptoms worsen and you have a fever Follow-up/Referrals: Mazin Villanueva MD [Primary Care Provider] - 02/05/20 12:50 pm Diet: Regular Addtl Attending Provider Instructions: Medications - LEVOFLOXACIN: 750mg daily for two more days Multifocal pneumonia evidence of bilateral infiltrates on your chest x-ray initially had fever and flu like symptoms influenza testing negative, biofire testing negative for other viral/bacterial cause Legionella antigen pending (bacterial infection) much improved at this time, safe for discharge as we discussed, COVID 19 testing was sent and is pending, will likely take a few days to come back please stay isolated in your room until we contact you with the results if you are positive we will give you further instruction, including your parents/family even if you are positive, you will continue to improve at this point and fully recover Pending Studies at Discharge: Yes Studies:: COVID 19 testing Stand-Alone Forms: My [facility] [employer], Smoking Cessation Medications and DC Order Prescriptions: New levofloxacin 750 mg Tablet 750 mg PO DAILY@1100 2 Days Qty: 2 RF: 0 Continued hydroxyzine pamoate [Vistaril] 25 mg capsule 25 - 50 mg PO Q8H PRN (Reason: Pain) RF: 0 trazodone 50 mg tablet 25 mg PO HS PRN (Reason: Sleep) RF: 0 escitalopram oxalate [Lexapro] 10 mg Tablet 10 mg PO QAM RF: 0 Discharge Orders: Discharge Order (Routine); Ordered 02/04/20 Ordered By: Prem Moore/Other Patient Handouts: Droplet Transmission Precautions, Pneumonia Dc, Levofloxacin tablets Admission Data Admit Date/Time: 01/31/20 18:04 Attending Provider: Prem Wilcox Admit Provider: Estelle Lara Primary Care Provider: Mazin Villanueva Other Providers: Estelle Lara Other Interventions: Discharge Summary Assessment (RN) Last Done: 02/04/20 10:01 DC Date/Time DO NOT enter until pt leaves facility: 02/04/20 11:35 Coding Level of Care Code D/C Day Management >30 mins Diagnoses PNA (pneumonia) J18.9 Laterality: bilateral Lung location: unspecified part of lung Pneumonia type: due to unspecified organism Sepsis A41.9 Sepsis acute organ dysfunction status: unspecified Sepsis type: sepsis due to unspecified organism Acute respiratory failure with hypoxia J96.01 Abnormal coagulation profile R79.1 Anxiety F41.9 Hypomagnesemia E83.42 Alcohol abuse F10.10 DVT prophylaxis Z29.9
[2020-02-04] MEDS ORDERED: levoFLOXacin 750 MG TAB PO SCH (11:00)
[2020-02-08 10:29] LABS: COVID-19 Patient Symptomatic? YES
== END 2020-02-04 11:35 | disposition home or self-care (01) | DRG 871 ==
LOC: ED 12:31 → SUATTDRO 18:04 → 2S 18:04

== ENCOUNTER 2020-04-04 21:07 | Inpatient (IN) ==
[2020-04-04] MEDS ORDERED: PROMETHAZINE HCL 12.5 MG in SODIUM CHLORIDE 0.9% 50 ML IV STA (21:29)
[2020-04-04] MEDS ORDERED: chlordiazePOXIDE HCl 25 MG CAP PO ONE (21:29)
[2020-04-04] MEDS ORDERED: LORazepam 2 MG/4 ML VIAL IV STA (21:29)
[2020-04-04] MEDS ORDERED: ONDANSETRON INJ 2 MG/ML 2 ML VIAL IV STA (21:29)
[2020-04-04] MEDS ORDERED: MULTI-VITAMIN INFUSION 10 ML, THIAMINE HCL 100 MG, FOLIC ACID 1 MG in SODIUM CHLORIDE 0... IV ONE (21:29)
[2020-04-04] MEDS ORDERED: SODIUM CHLORIDE 0.9% 500 ML IV SCH (21:30)
[2020-04-04] MEDS ORDERED: PROMETHAZINE 12.5 MG/50.5 ML NSS IV ONE (21:36)
--- NOTE | 2020-04-04 21:37 | Emergency Department Note ---
Impression & Plan Alcohol withdrawal, Hypomagnesemia, Tachycardia, Acute dehydration, Vomiting ED Provider Note NAME: ROCKY HUGHES AGE: 19 SEX: M : 2000 ARRIVES VIA: Walk-In INFORMANT: [Patient] ED PROVIDER(S): [José Ruggieor MD] CHIEF COMPLAINT: Alcohol withdrawal HISTORY OF PRESENT ILLNESS: Patient is a 19-year-old male who states he is an alcoholic. The patient has been to alcohol rehab in the past. He states that he has had 24 hours of alcohol withdrawal now as his last drink was 24 hours ago. He has had shakes, panic, body aches, nausea and vomiting. There has been no loss of consciousness, no fever chills, cough or congestion. Nothing makes his symptoms better or worse. The patient states that he was on a 3-day binge of drinking alcohol, mostly beer. He states this is the worst he has ever felt when he has had withdrawal. He is here for help and care. The patient is not suicidal or homicidal. He does not want to go to rehab right away but would like help here at our hospital and maybe as an outpatient. REVIEW OF SYSTEMS: See HPI for pertinent positives and negatives. A total of ten systems were reviewed and were otherwise negative. PMHx/PSHx: See Below SOCIAL HISTORY: See Below. PHYSICAL EXAM: GENERAL: Patient is in significant distress, shaking. Holding a vomit bag. HEENT: No acute trauma, normocephalic atraumatic, mucous membranes dry, no nasal congestion, no scleral icterus. NECK: No stridor, no adenopathy, no meningismus, trachea is midline. LUNGS: Clear to auscultation bilaterally, no wheeze, no rhonchi, breath sounds equal. HEART: Cardiac, regular rhythm, no murmurs. ABDOMEN: Soft, nontender, bowel sounds positive, no hernias, no peritonitis. EXTREMITIES: No cyanosis or edema, full range of motion of all the joints without pain or difficulty, no signs for acute trauma. NEUROLOGIC: Oriented x 3, no acute motor or sensory deficits, no focal weakness. SKIN: No rash, no jaundice, no diaphoresis. DIFFERENTIAL DIAGNOSIS: Alcohol intoxication, alcohol withdrawal, dehydration, toxicologic, infection, hypoglycemia, electrolyte abnormalities, cardiac sources, intracerebral event, neurologic, trauma, as well as other pathologies. EMERGENCY DEPARTMENT COURSE/PROCEDURES: ECG: Indication was tachycardia. The EKG shows a normal sinus rhythm with a rate of 89. There is no ST elevation, no PVCs. The QTc is 452. Continuous Cardiac Monitoring: An order was placed for continuous cardiac monitoring. The monitor shows a rate of 83 with normal sinus rhythm. Critical Care Note: I have personally spent greater than 36 minutes of critical care time in the direct management of this patient. This includes bedside care, interpretation of diagnostic studies, and testing, discussion with consultants, patient, and family members, and other required patient management activities. This 36 minutes is in excess of all separately billable procedures. MEDICAL DECISION MAKING: There is no leukocytosis or concerning anemia. No kidney failure. Magnesium was low at 1.6. There were a few subtle liver enzyme elevations which would go along with his history of alcoholism. Urine tox was negative. Alcohol level was mildly elevated at 4.1. Chest film did not show pneumonia, mediastinal widening or CHF. EKG showed a sinus rhythm, no acute ischemia. The patient presented tachycardic, shaking and vomiting. He appeared to be in alcohol withdrawal. He was aggressively managed. He was given IV Ativan, IV magnesium, IV Zofran, IV Phenergan and IV saline. He was given IV saline mixed with thiamine, folate and multivitamins. He was given a dose of oral Librium. With the above medication regimen, the patient feels improved, his tachycardia has resolved. He is no longer shaky and seems to be resting comfortably. Given his findings, given his presentation, a hospital stay was felt warranted. He requires further care for his withdrawal. I did speak to the patient and case management. The on-call hospitalist was consulted. Past Med/Surg History Medical History Acne (Acute) Anxiety Anxiety (Inactive) Fever (Acute) Suicidal ideation (Inactive) Family History Other No pertinent family history in first degree relatives Social History Preferred Language: Bengali Communication Ability: Effective Beliefs That Will Affect Care: None Current Living Situation: Rehab Current Living Situation Comment: USUALLY LIVES WITH FAMILY OR FRIENDS Feels Safe at Home: Yes Smoking Status: Current every day smoker Hx Alcohol Use: Yes (QUIT 1 MONTH AGO) Alcohol type: hard liquor Hx Substance Use: No Allergies Allergies Allergy/AdvReac Type Severity Reaction Status Date / Time Bactrim AdvReac Mild nausea, SOB Verified 06/16/18 07:57 sulfamethoxazole AdvReac Mild nausea, SOB Verified 04/04/20 23:06 trimethoprim AdvReac Mild nausea, SOB Verified 04/04/20 23:06 Home Meds Home Medications Medication Instructions Recorded Confirmed trazodone 50 mg PO HS PRN 10/18/19 04/04/20 Results & Data (ED) Vital Signs Vital Signs - 24 hr 04/04/20 21:08 04/04/20 21:59 04/04/20 22:01 Temperature 36.9 C Temperature Source Oral Pulse Rate 123 H 98 H 99 H Pulse Rate from SpO2 Sensor 99 H Pulse Rhythm Regular Regular Pulse Strength Normal Respiratory Rate 22 22 19 Blood Pressure 138/80 133/78 Blood Pressure Mean 99 104 Pulse Oximetry 97 97 94 Oxygen Delivery Method Room Air Room Air Sepsis Recent Fever Within 48 Hours No Sepsis Action Taken by Nursing No Action Required 04/04/20 22:30 04/04/20 23:00 04/04/20 23:30 Temperature Temperature Source Pulse Rate 85 88 93 H Pulse Rate from SpO2 Sensor 92 H 92 H Pulse Rhythm Pulse Strength Respiratory Rate 17 18 14 Blood Pressure 138/70 126/78 133/76 Blood Pressure Mean 95 95 91 Pulse Oximetry 96 98 99 Oxygen Delivery Method Room Air Room Air Sepsis Recent Fever Within 48 Hours Sepsis Action Taken by Nursing 04/05/20 00:00 04/05/20 00:30 Temperature Temperature Source Pulse Rate 92 H 83 Pulse Rate from SpO2 Sensor Pulse Rhythm Pulse Strength Respiratory Rate 18 20 Blood Pressure 147/86 H 122/81 Blood Pressure Mean 97 91 Pulse Oximetry 96 97 Oxygen Delivery Method Sepsis Recent Fever Within 48 Hours Sepsis Action Taken by Long-Term Medications Current Medication List: was personally reviewed by me Laboratory Data Attestation: I reviewed the patient's lab results. Result diagrams: 04/04/20 21:41 04/04/20 21:41 Lab Results 04/04/20 04/04/20 04/04/20 Range/Units 21:41 21:41 21:41 WBC 9.03 (4.8-10.8) K/uL RBC 4.78 (4.7-6.1) M/uL Hgb 15.4 (14.0-18.0) g/dL Hct 43.8 (42-52) % MCV 91.6 (80-100) fL MCH 32.2 (25-34) pg MCHC 35.2 (32-36) g/dL RDW Std Deviation 47.8 H (36.4-46.3) fL RDW Coeff of Candace 14.3 (11.5-14.5) % Plt Count 142 (130-400) K/uL MPV 9.0 (7.4-10.4) fL Immature Gran % (Auto) 0.2 % Neut % (Auto) 87.9 % Lymph % (Auto) 7.4 % [place] % (Auto) 4.4 % Eos % (Auto) 0.0 % Baso % (Auto) 0.1 % Immature Gran # (Auto) 0.02 (0.00-0.02) K/uL Neut # (Auto) 7.93 H (1.4-6.5) K/uL Lymph # (Auto) 0.67 L (1.2-3.4) K/uL [place] # (Auto) 0.40 (0.11-0.59) K/uL Eos # (Auto) 0.00 (0-0.5) K/uL Baso # (Auto) 0.01 (0-0.2) K/uL Sodium 139 (136-145) mmol/L Potassium 3.6 (3.5-5.1) mmol/L Chloride 103 (98-107) mmol/L Carbon Dioxide 22 (21-32) mmol/L Anion Gap 14.0 H (3-11) BUN 13 (7-18) mg/dl Creatinine 0.97 (0.6-1.4) mg/dl Est Cr Clr Drug Dosing Not Reportable Est GFR ( Amer) 128.8 Est GFR (Non-Af Amer) 111.1 BUN/Creatinine Ratio 13.3 (10-20) Glucose 111 H (70-99) mg/dl Calcium 9.0 (8.5-10.1) mg/dl Magnesium 1.6 L (1.8-2.4) mg/dl Total Bilirubin 1.4 H (0.2-1) mg/dl AST 71 H (15-37) U/L ALT 48 (12-78) U/L Alkaline Phosphatase 114 (45-117) U/L Total Protein 8.3 H (6.4-8.2) gm/dl Albumin 4.1 (3.4-5.0) gm/dl Globulin 4.2 H (2.5-4.0) gm/dl Albumin/Globulin Ratio 1.0 (0.9-2) Urine Opiates Screen (Neg) Ur Methadone, Qual (Neg) Urine Barbiturates (Neg) Ur Phencyclidine (PCP) (Neg) U Amphetamin/Meth Scrn (Neg) MDMA (Ecstasy) Screen (Neg) U Benzodiazepines Scrn (Neg) Ur Cocaine Metabolite (Neg) U Marijuana (THC) Screen (Neg) Ethyl Alcohol mg/dL 4.1 H (0-3) mg/dl 04/04/20 Range/Units 23:26 WBC (4.8-10.8) K/uL RBC (4.7-6.1) M/uL Hgb (14.0-18.0) g/dL Hct (42-52) % MCV (80-100) fL MCH (25-34) pg MCHC (32-36) g/dL RDW Std Deviation (36.4-46.3) fL RDW Coeff of Candace (11.5-14.5) % Plt Count (130-400) K/uL MPV (7.4-10.4) fL Immature Gran % (Auto) % Neut % (Auto) % Lymph % (Auto) % [place] % (Auto) % Eos % (Auto) % Baso % (Auto) % Immature Gran # (Auto) (0.00-0.02) K/uL Neut # (Auto) (1.4-6.5) K/uL Lymph # (Auto) (1.2-3.4) K/uL [place] # (Auto) (0.11-0.59) K/uL Eos # (Auto) (0-0.5) K/uL Baso # (Auto) (0-0.2) K/uL Sodium (136-145) mmol/L Potassium (3.5-5.1) mmol/L Chloride (98-107) mmol/L Carbon Dioxide (21-32) mmol/L Anion Gap (3-11) BUN (7-18) mg/dl Creatinine (0.6-1.4) mg/dl Est Cr Clr Drug Dosing Est GFR ( Amer) Est GFR (Non-Af Amer) BUN/Creatinine Ratio (10-20) Glucose (70-99) mg/dl Calcium (8.5-10.1) mg/dl Magnesium (1.8-2.4) mg/dl Total Bilirubin (0.2-1) mg/dl AST (15-37) U/L ALT (12-78) U/L Alkaline Phosphatase (45-117) U/L Total Protein (6.4-8.2) gm/dl Albumin (3.4-5.0) gm/dl Globulin (2.5-4.0) gm/dl Albumin/Globulin Ratio (0.9-2) Urine Opiates Screen Neg (Neg) Ur Methadone, Qual Neg (Neg) Urine Barbiturates Neg (Neg) Ur Phencyclidine (PCP) Neg (Neg) U Amphetamin/Meth Scrn Neg (Neg) MDMA (Ecstasy) Screen Neg (Neg) U Benzodiazepines Scrn Neg (Neg) Ur Cocaine Metabolite Neg (Neg) U Marijuana (THC) Screen Neg (Neg) Ethyl Alcohol mg/dL (0-3) mg/dl Administered Medications Discontinued Medications Chlordiazepoxide HCl (Librium) 50 mg PO NOW ONE Stop: 04/04/20 21:30 Last Admin: 04/04/20 22:25 Dose: 50 mg Documented by: [id number] Sodium Chloride (Nss) 500 mls @ 999 mls/hr IV .Q31M JOHAN Stop: 04/04/20 22:00 Last Infusion: 04/04/20 22:25 Dose: 0 mls/hr Documented by: [id number] Admin: 04/04/20 21:49 Dose: 999 mls/hr Documented by: [id number] Promethazine HCl 12.5 mg/ (Sodium Chloride) 50.5 mls @ 202 mls/hr IV NOW STA Stop: 04/04/20 21:43 Last Admin: 04/04/20 21:54 Dose: Not Given Documented by: [id number] Lorazepam (Ativan) 2 mg in 4 mls @ 4 mls/min IV NOW STA Stop: 04/04/20 21:30 Last Admin: 04/04/20 21:49 Dose: 4 mls/min Documented by: [id number] Multivitamins 10 ml/ Thiamine HCl 100 mg/ Folic Acid 1 mg/Sodium Chloride 1,011.2 mls @ 1,011.2 mls/hr IV .Q1H ONE Stop: 04/04/20 22:28 Last Infusion: 04/04/20 23:30 Dose: 0 mls/hr Documented by: [id number] Admin: 04/04/20 22:25 Dose: 1,011.2 mls/hr Documented by: [id number] Magnesium Sulfate/Dextrose (Magnesium Sulfate / D5w) 1 gm in 100 mls @ 50 mls/hr IV Q1H STA Stop: 04/05/20 00:29 Last Infusion: 04/05/20 00:55 Dose: 0 mls/hr Documented by: [id number] Admin: 04/04/20 23:58 Dose: 100 mls/hr Documented by: [id number] Infusion: 04/04/20 23:57 Dose: 0 mls/hr Documented by: [id number] Admin: 04/04/20 22:52 Dose: 50 mls/hr Documented by: [id number] Ondansetron HCl (Zofran) 4 mg IV NOW STA Stop: 04/04/20 21:30 Last Admin: 04/04/20 21:49 Dose: 4 mg Documented by: [id number] Promethazine HCl (Phenergan) Confirm Administered Dose 12.5 mg IV .STK-MED ONE Stop: 04/04/20 21:37 Last Admin: 04/04/20 21:54 Dose: 12.5 mg Documented by: [id number] Imaging Data Radiologist's Impression: XR chest 1V portable CLINICAL HISTORY: weakness COMPARISON STUDY: 01/31/2020 FINDINGS: The cardiac and mediastinal contours are normal. There is been interval resolution of the previously identified bilateral interstitial pulmonary opacities. There is no acute parenchymal consolidation. There is no failure. There are no pleural effusions.[ IMPRESSION: No active disease in the chest. Blood Pressure Blood Pressure Findings: Elevated blood pressure Blood Pressure Disposition: further management by hospitalist Discharge Plan Visit Data Chief Complaint: Alcohol Withdrawal Stated Complaint: ALCOHOL WITHDRAWAL DEPRESSION ED Provider: José Ruggiero Discharge Problem: Alcohol withdrawal, Hypomagnesemia, Tachycardia, Acute dehydration, Vomiting Patient Disposition: Being Evaluated by Hospitalist Condition: Fair Forms Stand Alone Forms: [facility] Prescriptions Prescriptions: No Action trazodone 50 mg tablet 50 mg PO HS PRN (Reason: Sleep) RF: 0 Referrals Referrals: Mazin Villanueva MD [Primary Care Provider] - Discharge Problem: Alcohol withdrawal Qualifiers: Complication of substance-induced condition: with unspecified complication Q ualified Code(s): F10.239 - Alcohol dependence with withdrawal, unspecified Vomiting Qualifiers: Vomiting type: unspecified Vomiting Intractability: non-intractable Nausea presence: with nausea Qualified Code(s): R11.2 - Nausea with vomiting, unspec ified
[2020-04-04 22:03] LABS: Basophils # (auto) 0.01 K/uL (0-0.2); Basophils % (auto) 0.1 %; Hematocrit (blood only) 43.8 % (42-52); Hemoglobin 15.4 g/dL (14.0-18.0); Immature Granulocytes # (auto) 0.02 K/uL (0.00-0.02); Immature Granulocytes % (auto) 0.2 %; Lymphocytes # (auto) 0.67 K/uL (1.2-3.4); Lymphocytes % (auto) 7.4 %; Mean Corpuscular Hemoglobin 32.2 pg (25-34); Mean Corpuscular Hgb Conc 35.2 g/dL (32-36); Mean Corpuscular Volume 91.6 fL (80-100); Monocytes % (auto) 4.4 %; Neutrophils # (auto) 7.93 K/uL (1.4-6.5); Neutrophils % (auto) 87.9 %; Platelet Count 142 K/uL (130-400); RDW Coefficient of Variation 14.3 % (11.5-14.5); RDW Standard Deviation 47.8 fL (36.4-46.3); Red Blood Count 4.78 M/uL (4.7-6.1); White Blood Count 9.03 K/uL (4.8-10.8)
--- NOTE | 2020-04-04 22:20 | XRay Report ---
XR chest 1V portable CLINICAL HISTORY: weakness COMPARISON STUDY: 01/31/2020 FINDINGS: The cardiac and mediastinal contours are normal. There is been interval resolution of the p reviously identified bilateral interstitial pulmonary opacities. There is no acute parenchymal consol idation. There is no failure. There are no pleural effusions.[ IMPRESSION: No active disease in the chest. ACT 112: Negative or not required by law. Electronically signed by: Jaden Concepcion M.D. 04/04/2020 10:19 PM
[2020-04-04 22:22] LABS: Albumin Level 4.1 gm/dl (3.4-5.0); BUN Creatinine Ratio 13.3 (10-20); Blood Urea Nitrogen 13 mg/dl (7-18); Carbon Dioxide 22 mmol/L (21-32); Chloride 103 mmol/L (98-107); Est GFR (African American) 128.8; Est GFR (Non-African American) 111.1; Glucose 111 mg/dl (70-99); Magnesium 1.6 mg/dl (1.8-2.4); Potassium 3.6 mmol/L (3.5-5.1); Sodium 139 mmol/L (136-145)
[2020-04-04 22:25] LABS: Alanine Aminotransferase 48 U/L (12-78); Alkaline Phosphatase 114 U/L (45-117); Aspartate Aminotransferase 71 U/L (15-37); Bilirubin,Total 1.4 mg/dl (0.2-1); Globulin 4.2 gm/dl (2.5-4.0); Total Protein 8.3 gm/dl (6.4-8.2)
[2020-04-04] MEDS: MAGNESIUM SULFATE / D5W 1 GM/100 ML BAG IV STA ×2 (22:52→23:58)
[2020-04-05 00:01] LABS: Amphetamines+Metham, Urine Neg (Neg); Barbiturates, Urine Neg (Neg); Benzodiazepine, Urine Neg (Neg); Cocaine, Urine Neg (Neg); MDMA (Ecstacy), Urine Neg (Neg); Methadone, Urine Neg (Neg); Opiate, Urine Neg (Neg); Phencyclidine, Urine Neg (Neg)
--- NOTE | 2020-04-05 01:49 | History & Physical Report ---
Date of Service April 05, 2020 Assessment & Plan (1) Alcohol withdrawal: Leland Rosario is a 19 year old man with a history of alcohol abuse here for help with nausea, vomiting, dehydration and alcohol withdrawal Withdrawal Last drink 24 hours ago patient currently quite tremulous and anxious Given banana bag with folate and thiamine in ED Will give more IV thiamine in AM Will treat with Ativan alcohol withdrawal protocol CIWA-Ar of 30, will monitor closely on PCU Based on his reported timeline could get worse before it gets better. Elevated AST and Bilirubin Likely secondary to his acute alcohol abuse Expect to trend down. Explained to patient that we are already seeing signs of liver damage with elevated AST bilirubin and palpable liver on exam and that he will only make this worse if he continues to abuse alcohol. Will check INR. Acute Dehydration Secondary to severe vomiting and lack of PO intake Received 500 mls NSS and one banana bag on arrival now giving 100 mls/hour lactated ringers Alcohol Abuse Feels he does not want to do inpatient rehab again and that he will be able to stop drinking on his own after this relapse. Consulted psychiatry for help with his anxiety and substance abuse, may benefit from finding a counselor or mental health provider in the area. 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 He has sought help for this numerous times with different counselors, but never felt he had a connection with his counselors. He recently decided to check himself into rehab with the support of friends and family. He spent two weeks at [facility] for alcohol rehabilitation and had been sober since. Of note patient developed bilateral pneumonia at the end of that stay and was admitted for four days here at [facility] discharged on 02/03. He has been sober for over two months and then four days ago started drinking very heavily again. He drank as much alcohol as he could for three days and then decided to quite again. This morning he developed chill shakes, nausea and repeated vomiting. He hasn't had any drinks for about 24 hours and denies any other drug use. He has gone through withdrawal on his own before, but his nausea vomiting and tremors were more severe than he had ever experienced. He initially devised a plan to wean himself down using small amounts of beer to treat symptoms but a friend of his who is currently in nursing school convinced him he needed the hospital so he came into ED tonight. In ED patient with vital signs WNL, labwork significant for hypomagnesemia of 1.6, elevated bilirubin of 1.4, elevated AST of 71, normal AST, urine drug screen negative for everything except alcohol still elevated. He does not endorse any other symptoms on full review, he was eating and drinking well prior to this morning, has not had any recent fevers chills, or sick contacts, no recent travel. He is not telling his parents about this, he plans on returning to his counselor after this and maybe doing outpatient rehabilitation. Allergies Allergy/AdvReac Type Severity Reaction Status Date / Time Bactrim AdvReac Mild nausea, SOB Verified 06/16/18 07:57 sulfamethoxazole AdvReac Mild nausea, SOB Verified 04/04/20 23:06 trimethoprim AdvReac Mild nausea, SOB Verified 04/04/20 23:06 Home Medications Home Medications Medication Instructions Recorded Confirmed Type trazodone 50 mg PO HS PRN 10/18/19 04/04/20 History Past Med/Surg History Medical History Acne (Acute) Anxiety Anxiety (Inactive) Fever (Acute) Suicidal ideation (Inactive) Family History Other No pertinent family history in first degree relatives Social History Preferred Language: Tongan Communication Ability: Effective Beliefs That Will Affect Care: None Current Living Situation: Other Current Living Situation Comment: USUALLY LIVES WITH FAMILY OR FRIENDS Other Information That Helps Us Care for You: No Feels Safe at Home: Yes Safety Concerns: Feels Safe At This Time Smoking Status: Never smoker Hx Alcohol Use: Yes Alcohol type: beer and hard liquor Hx Substance Use: No Review of Systems Review of Systems: All systems reviewed & are unremarkable except as noted in HPI & below Physical Exam Physical Exam: Constitutional: tremulous sweaty young man lying in bed in mild distress. Eyes: PERRLA, EOMMI bilaterally, some horizontal nystagmus ENMT: NAD NECK: NAD Respiratory: No increased work of breathing, regular rate, lung sounds vesicular in all lung burt Cardiovascular: regular rate, regular rhythm, no m/r/s/g, peripheral pulses intact, no lower limb edema GI: Abdomen soft, nontender, no organomegaly detected, normal bowel sounds Neuro: Strength and sensation intact all extremities, hyperactive reflexes, equal bilaterally upper and lower extremities Skin: Flushed clammy Psychiatric:Very anxious affect, Results & Data Results & Data ([facility]) Vital Signs (Past 12 Hours) Vital Signs Temp Pulse Resp BP Pulse Ox 04/05/20 00:30 83 20 122/81 97 04/05/20 00:00 92 H 18 147/86 H 96 04/04/20 23:30 93 H 14 133/76 99 04/04/20 23:00 88 18 126/78 98 04/04/20 22:30 85 17 138/70 96 04/04/20 22:01 99 H 19 133/78 94 04/04/20 21:59 98 H 22 97 04/04/20 21:08 36.9 C 123 H 22 138/80 97 Supervising Physician Co-Signing Physician Notes Attending addendum: I have physically seen this patient, have supervised the medical residents activities, and agree with the H&P unless as otherwise noted. Assessment and Plan: Alcohol withdrawal- Admit to monitored bed AWSS protocol. Thiamine, folic acid and multivitamin as noted. Follow serial CBC with differential, chemistry profile and magnesium level. Ordering an INR to assess for synthetic function. Consult psychiatry, as patient appears to have anxiety and possibly other issues. NSS + KCl 20 mEq 150 mils per hour. Remainder of orders and notations as noted Resident Activity Tracking Resident Involvement: Resident Care Provided Care Provided: Adult Hospital Medicine (1) Alcohol withdrawal Complication of substance-induced condition: with unspecified complication Qualified Code(s): F10.239 - Alcohol dependence with withdrawal, unspecified (2) Vomiting Nausea presence: with nausea Vomiting Intractability: non-intractable Vomiting type: unspecified Qualified Code(s): R11.2 - Nausea with vomiting, unspecified
[2020-04-05] MEDS ORDERED: LORazepam 3 MG/6 ML VIAL IV PRN (02:42)
[2020-04-05] MEDS ORDERED: ATIVAN IV ALCOHOL WITHDRAWL IV PRN (02:42)
[2020-04-05] MEDS ORDERED: ONDANSETRON INJ 2 MG/ML 2 ML VIAL IV PRN (02:42)
[2020-04-05] MEDS ORDERED: LORazepam 2 MG/4 ML VIAL IV PRN (02:42)
[2020-04-05] MEDS ORDERED: LORazepam 1 MG/2 ML VIAL IV PRN (02:42)
[2020-04-05] MEDS ORDERED: POLYETHYLENE (MIRALAX) 17 GM PACK PO PRN (02:42)
[2020-04-05 03:26] LABS: Partial Thromboplastin Ratio 0.9; Partial Thromboplastin Time 25.1 Seconds (21.0-31.0); Prothrombin Time 10.7 Seconds (9.0-12.0)
[2020-04-05] MEDS: LACTATED RINGER'S 1,000 ML IV SCH ×3 (03:51→22:15)
[2020-04-05 03:56] LABS: Vitamin B12 343 pg/ml (211-911)
[2020-04-05 03:57] LABS: Folate (Folic Acid) > 24.00 ng/ml (>5.38)
[2020-04-05] MEDS: THIAMINE HCL 100 MG in SYRINGE 9 ML IV SCH (09:40)
[2020-04-05] MEDS: FOLIC ACID 1 MG in SYRINGE 9.8 ML IV SCH (09:40)
--- NOTE | 2020-04-05 10:48 | Electrocardiogram Report ---
Test Reason : Blood Pressure : / mmHG Vent. Rate : 089 BPM Atrial Rate : 089 BPM P-R Int : 146 ms QRS Dur : 098 ms QT Int : 372 ms P-R-T Axes : 049 052 025 degrees QTc Int : 452 ms Normal sinus rhythm Incomplete right bundle branch block Normal ECG When compared with ECG of 31-JAN-2020 14:05, T wave inversion no longer evident in Inferior leads Nonspecific T wave abnormality has replaced inverted T waves in Anterior leads Confirmed by Chintan Gavin ([id number] on 04/05/2020 10:47:33 AM Referred By: REFERRED SELF Confirmed By:Chi Gavin
--- NOTE | 2020-04-05 14:53 | Psychiatric Consultation ---
Date of Consultation April 05, 2020 Impression / Recommendations Impression Pleasant 19-year-old gentleman with unfortunate likely genetic loading for alcohol use disorder. Recently out of inpatient rehab in January 2020 with 2- month sobriety following. He acknowledges that his alcohol use is a problem and the importance of his decision to abstain from alcohol was stressed regarding impact to the trajectory of his life. He appears motivated to abstain and agrees to continue to participate in outpatient therapy, medication management, and 12-step program but is not interested in returning to inpatient rehab at this time. He describes symptoms of depressive mood states and anxiety however temporally these symptoms are comorbid with his alcohol abuse and cannot clearly identify an underlying mood or anxiety disorder secondarily. He reports modest benefit from antidepressants, specifically SSRIs, in the past as well as some mild side effects. We had a lengthy discussion regarding treatment options and I do feel it is appropriate for him to be treated with an antidepressant which may help to reduce emotional distress as well as to improve impulse control and decision making. At this time I would not recommend Wellbutrin which is not typically a good treatment for anxiety and lowers seizure threshold. BuSpar would be a reasonable option for anxiety and we considered risks and benefits of that medicine however ultimately elected to trial him on Remeron as below for alternative mechanism antidepressant for both mood and anxiety, sleep, sas programmer analyst anxiety, and possible decreased risk for sexual dysfunction. Common risks and benefits were reviewed including risk for sedation, dizziness, weight gain. We also discussed interventions to reduce risk for relapse such as naltrexone, topiramate, or acamprosate which would be deferred to his outpatient provider. He was strongly encouraged to pursue a sponsor through and attend daily meetings. He has recently established with a new provider at [facility] and agrees to follow-up as an outpatient for continued treatment. At this time no acute safety concerns are appreciated such as suicidal or homicidal ideation that would necessitate psychiatric hospitalization. (1) Alcohol withdrawal: -Alcohol detox per primary team recommendations. Denies history of complicated withdrawal Complication of substance-induced condition: with unspecified complication Qualified Code(s): F10.239 - Alcohol dependence with withdrawal, unspecified (2) Alcohol abuse: -Patient to follow-up in outpatient counseling at [facility] and (3) Alcohol-induced anxiety disorder: - As above, recommend discontinuation of trazodone and initiation of Remeron at 15 mg p.o. nightly. I suggested he could pursue this through his outpatient provider in setting of mild LFT elevation however he hoped to trial a single dose before likely to be discharged tomorrow which is not unreasonable. Will order for tonight. Inventory Assets Strengths: Help seeking, intelligent Needs: Support of alcohol abstinence, pharmacotherapy, counseling Risk Factors Assessment Male: Yes : Yes Do You Have Access To A Gun?: No Health Problems: No Mental Health Diagnoses: Yes Substance Use Disorders: Yes Previous Attempt: No Family History of Suicide: No Previous Psychiatric Hospitalization: No Hopelessness: No Protective Factors Assessment : No Responsible for Young Children: No Stable Relationships: Yes Supportive Family: Yes CPT Code 68987 Psych History Chief Complaint "I know I cannot keep doing this". History of Present Illness Patient has a past medical history significant for alcohol abuse during this time at [facility]. Has participated previously in counseling and recently inpatient rehab at [facility] for alcohol abuse in January 2020 however his rehab stay was cut short as he developed pneumonia requiring medical hospitalization discharged from [facility] on 02/04/2020. Sober for about 2 months before 4-day binge drinking. He cannot quantify amount of alcohol consumed but states that he drank as much as he could. On morning of presentation he developed shakes, nausea, vomiting. Had not drank for about 24 hours. Alcohol level was 4.1 on presentation. Urine drug screen was otherwise negative. Medically admitted for alcohol detox. On interview he describes a history of symptoms of depression and anxiety however these have been comorbid with episodic alcohol abuse in the last several years and he cannot determine if he drinks to feel good or to numb himself from other unpleasant emotional experiences. He denies that his alcohol use is an attempt to harm himself. He denies intent or plan for harm to himself or anyone else at present. Reports he is starting to feel better and denies a history of complicated withdrawal. He reports he has been treated with several different SSRIs in the past which were possibly modestly helpful for mood but also were associated with stomach upset and sexual side effects. He asks about possible treatment with Wellbutrin or BuSpar which apparently has been discussed with primary team already. He is not interested in returning to inpatient substance abuse treatment but is readily willing to continue in his outpatient therapy and plans to increase his participation in AA online. Psychiatric review of systems is notable for history of panic attacks and increased anxiety and early mornings on waking but negative for symptoms of bipolar disorder or psychosis. Past Psychiatric History Previous Psych History: Previously followed with Dr. Donaldson. Recently established with Mayra at [facility]: Outpatient therapy and medication management Previous Psych Admissions: Denies Do You Have Access To A Gun?: No History of Previous Suicide Attempt: No Past Medication Trials: Lexapro Zoloft Trazodone Vistaril Allergies Allergy/AdvReac Type Severity Reaction Status Date / Time Bactrim AdvReac Mild nausea, SOB Verified 06/16/18 07:57 sulfamethoxazole AdvReac Mild nausea, SOB Verified 04/04/20 23:06 trimethoprim AdvReac Mild nausea, SOB Verified 04/04/20 23:06 Home Medications Home Medications Medication Instructions Recorded Confirmed Type trazodone 50 mg PO HS PRN 10/18/19 04/04/20 History Family History Mother has anxiety and depression Maternal grandfather with alcohol abuse history Denies history of suicide in family Substance Abuse History Reports he began drinking in college. Binge drinking pattern, for to 8 or more drinks but not daily. Acknowledges social consequences associated with alcohol use including missing classes at senior in college, guilt associated with stress to family, and 1 inpatient rehab stay in December to January 2020 at [facility]. 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 Marital Status: Single Beliefs That Will Affect Care: None History of Legal Problems: Denies Psychological Trauma History Comment: Denies Patient History Medical History Acne (Acute) Anxiety Anxiety (Inactive) Fever (Acute) Suicidal ideation (Inactive) Family History Other No pertinent family history in first degree relatives Social History Preferred Language: Yoruba Communication Ability: Effective Beliefs That Will Affect Care: None Current Living Situation: Other Current Living Situation Comment: USUALLY LIVES WITH FAMILY OR FRIENDS Other Information That Helps Us Care for You: No Feels Safe at Home: Yes Safety Concerns: Feels Safe At This Time Smoking Status: Never smoker Hx Alcohol Use: Yes Alcohol type: beer and hard liquor Hx Substance Use: No Physical Exam Psychiatric: Orientation: alert, oriented x 3 and cooperative; not guarded Apperance: appeared stated age Eye Contact: good eye contact Motor Behavior: n tremor Speech: normal rate/rhythm/volume of speech Affect: euthymic affect; no depressed affect Mood: + anxious mood Thought Process: goal directed thought process Thought Content: reality based without delusions Suicidal Thoughts: denies suicidal thoughts Homicidal Thoughts: denies homicidal thoughts Hallucinations: no auditory hallucinations, no visual hallucinations and no tactile hallucinations Cognition: language grossly intact Estimated Intelligence: average estimated intelligence Insight: + fair insight Judgement: + fair judgement Vital Signs (Past 24 Hours): Last Vital Signs Temp 36.8 C 04/05/20 13:50 Pulse 80 04/05/20 13:50 Resp 17 04/05/20 13:50 BP 141/90 H 04/05/20 13:50 Pulse Ox 98 04/05/20 13:50 Review of Systems Neurologic: no seizure-like activity and no confusion Psychiatric: as per Subjective / HPI; no suicidal ideation and no homicidal ideation 10 point review of systems otherwise negative except as per HPI Results & Data (PSY) Medications Administered Hydroxyzine HCl (Vistaril) 25 mg PO Q8 PRN PRN Reason: Anxiety Stop: 05/05/20 08:51 Last Admin: 04/05/20 09:40 Dose: 25 mg Documented by: [id number] Lactated Ringer's (Lr) 1,000 mls @ 100 mls/hr IV .Q10H JOHAN Stop: 05/05/20 02:41 Last Admin: 04/05/20 03:51 Dose: 100 mls/hr Documented by: [id number] Thiamine HCl 100 mg/ Syringe 10 mls @ 2 mls/min IV QAM JOHAN Stop: 05/05/20 08:59 Last Admin: 04/05/20 09:40 Dose: 2 mls/min Documented by: [id number] Folic Acid 1 mg/ Syringe 10 mls @ 5 mls/min IV QAM JOHAN Stop: 05/05/20 08:59 Last Admin: 04/05/20 09:40 Dose: 5 mls/min Documented by: [id number] Coding Level of Care Code 57371 U Intl Hosp Care Lvl 2 Diagnoses Alcohol withdrawal F10.239 Complication of substance-induced condition: with unspecified complication Alcohol abuse F10.10 Alcohol-induced anxiety disorder F10.980 Time Spent (min) 60
--- NOTE | 2020-04-05 16:03 | Hospitalist Progress Note ---
Date of Service April 05, 2020 Assessment & Plan (1) Alcohol-induced anxiety disorder: Psych recs for abdias as per their note Planning to start this HS and f/u with current outpt psych team (2) Alcohol withdrawal: Last EtOH was 04/03 9pm Given banana bag with folate and thiamine in ED Repeat IV thiamine Withdrawal protocol Pt feeling improved (3) Alcohol abuse: Feels he does not want to do inpatient rehab again, but is working with ongoing outpt resources like AA via Zoom and [facility] Pt should continue with B vitamins as outpt (4) LFT elevation: Likely secondary to his acute alcohol abuse Improving Monitor (5) Vomiting: Likely related to heavy alcohol use Resolved Monitor Monitor with IVF (6) Hypomagnesemia: Replaced in ED, monitor (7) DVT prophylaxis: Ambulation Pt does not wish for parents to know about his admission. Admission and Anticipated Discharge Date Admission Date: April 05, 2020 Subjective Pt was having a lot of anxiety this AM. Nursing called for PRN vistaril as this has helped pt in the past. Pt states he did feel his anxiety was improving s/p vistaril. He states that he had been doing well with his alcohol outpt rehab planning. He follows with [facility] and says they had tapered him off of all medications. He started to feel that his anxiety was increasing related to COVID issues and started to drink again a few days ago. He describes fairly heavy drinking for about 3 days. Pt then realized that this was not a good plan and stopped drinking. Over the course of that day he noted increasing anxiety and feeling shaky. Friends suggested he come to the ED. Pt denies fever, SOB, chest pain, abd pain, c/d, LE pain or swelling. There has been no further n/v and he ate breakfast without issue. Pt states that he had been discussing wellbutrin with his outpt psych team, but had not been started on anything yet. He would like to start something prior to d/c. Review of Systems Review of Systems: Pertinent positives and negatives reviewed in HPI--all others negative Physical Exam Constitutional: WD/WN, vitals as above Eyes: normal visual burt by confrontation and + anicteric sclerae Neck: normal visual inspection and trachea midline Respiratory: normal respiratory effort, lungs clear to auscultation Cardiovascular: Rate/Rhythm: regular rate and regular rhythm Gastrointestinal (Abdomen): Inspection/Auscultation: abdomen not distended Percussion/Palpation: abdomen soft; abdomen nontender Musculoskeletal: Head/Neck/Chest: normocephalic and head atraumatic negative for edema, peripheral pulses intact Skin: no rashes, warm and dry Neurologic: awake; not confused Speech / Cognition: normal speech Psychiatric: A+Ox3, euthymic affect Results & Data Results & Data ([facility]) Vital Signs (Past 12 Hours) Vital Signs Temp Pulse Pulse Resp BP Pulse Ox 04/05/20 15:26 36.5 C 86 19 145/95 H 100 04/05/20 13:50 36.8 C 80 17 141/90 H 98 04/05/20 08:00 75 04/05/20 07:15 36.7 C 76 20 125/79 99 PG Care Time/CCT Total # of Minutes Spent Total Time Spent with Patient: Total time spent is greater than 50% in coor dination of care (as documented) at patient's floor/unit and/or counseling patient: Coding Level of Care Code 01038 Subseq Hosp Care Lvl 3 Diagnoses Alcohol-induced anxiety disorder F10.980 Alcohol withdrawal F10.239 Complication of substance-induced condition: with unspecified complication Alcohol abuse F10.10 LFT elevation R79.89 Vomiting R11.2 Nausea presence: with nausea Vomiting Intractability: non-intractable Vomiting type: unspecified Hypomagnesemia E83.42 DVT prophylaxis Z29.9 (1) Alcohol withdrawal Complication of substance-induced condition: with unspecified complication Qualified Code(s): F10.239 - Alcohol dependence with withdrawal, unspecified (2) Vomiting Nausea presence: with nausea Vomiting Intractability: non-intractable Vomiting type: unspecified Qualified Code(s): R11.2 - Nausea with vomiting, unspecified
[2020-04-05] MEDS ORDERED: MIRTAZAPINE TAB 15 MG TAB PO SCH (21:00)
--- NOTE | 2020-04-06 05:25 | Billing Data ---
Date of Service April 06, 2020 Coding Level of Care Code 42134 Initial Inpt Care Lvl 2
[2020-04-06] MEDS: FOLIC ACID 1 MG in SYRINGE 9.8 ML IV SCH (08:19)
[2020-04-06] MEDS: THIAMINE HCL 100 MG in SYRINGE 9 ML IV SCH (08:19)
--- NOTE | 2020-04-06 09:25 | Discharge Summary ---
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 He has sought help for this numerous times with different counselors, but never felt he had a connection with his counselors. He recently decided to check himself into rehab with the support of friends and family. He spent two weeks at [facility] for alcohol rehabilitation and had been sober since. Of note patient developed bilateral pneumonia at the end of that stay and was admitted for four days here at [facility] discharged on 02/03. He has been sober for over two months and then four days ago started drinking very heavily again. He drank as much alcohol as he could for three days and then decided to quite again. This morning he developed chill shakes, nausea and repeated vomiting. He hasn't had any drinks for about 24 hours and denies any other drug use. He has gone through withdrawal on his own before, but his nausea vomiting and tremors were more severe than he had ever experienced. He initially devised a plan to wean himself down using small amounts of beer to treat symptoms but a friend of his who is currently in nursing school convinced him he needed the hospital so he came into ED tonight. In ED patient with vital signs WNL, labwork significant for hypomagnesemia of 1.6, elevated bilirubin of 1.4, elevated AST of 71, normal AST, urine drug screen negative for everything except alcohol still elevated. He does not endorse any other symptoms on full review, he was eating and drinking well prior to this morning, has not had any recent fevers chills, or sick contacts, no recent travel. He is not telling his parents about this, he plans on returning to his counselor after this and maybe doing outpatient rehabilitation. Principal Diagnosis Pt is doing well. He did have a panic dream last night, but he was able to work through it. He has no further n/v. His anxiety is much better. No further tremulousness. He has been eating without issue. Pt denies fever, SOB, chest pain, abd pain, n/v/c/d, LE pain or swelling. He had no issues with new medication he was started on last night. He states he has researched it and feels positive about this choice. He has psych team appts already in place. Pt did speak with his parents and informed them of his relapse. He states that they were not happy about this and want him to go to inpt rehab. Pt states that he has all of the tools he needs to remain sober, but he had stopped using them. He knows that he needs to be consistent with this. He has roommates who are very helpful and supportive of him. He has access to AA online meetings and is going to utilize this as well. He states that if this is not successful, he will reach out to [facility] for repeat inpt tx. He states they told him that he would be welcome there if he needed further tx. Discharge Exam Constitutional WD/WN, vitals as above Eyes normal visual burt by confrontation and + anicteric sclerae Neck normal visual inspection and trachea midline Respiratory normal respiratory effort, lungs clear to auscultation Cardiovascular Rate/Rhythm: regular rate and regular rhythm Gastrointestinal (Abdomen) Inspection/Auscultation: abdomen not distended Percussion/Palpation: abdomen soft; abdomen nontender Musculoskeletal Head/Neck/Chest: normocephalic and head atraumatic Skin no rashes, warm and dry Neurologic awake; not confused Speech / Cognition: normal speech Psychiatric A+Ox3, euthymic affect Discharge Data Allergies Allergy/AdvReac Type Severity Reaction Status Date / Time Bactrim AdvReac Mild nausea, SOB Verified 06/16/18 07:57 sulfamethoxazole AdvReac Mild nausea, SOB Verified 04/04/20 23:06 trimethoprim AdvReac Mild nausea, SOB Verified 04/04/20 23:06 Consultations 04/05/20 00:06 ED Decision to Admit Stat 04/05/20 02:42 Consult Psychiatry Routine Hospital Course (1) Alcohol withdrawal: Last EtOH was 04/03 9pm Given banana bag with folate and thiamine in ED Repeat IV thiamine Withdrawal protocol Pt feeling improved overall and ready for d/c (2) Hypomagnesemia: Replaced in ED, monitor (3) Tachycardia: resolved (4) Acute dehydration: resolved s/p IVF (5) Vomiting: Likely related to heavy alcohol use Resolved Monitor Monitor with IVF (6) Alcohol-induced anxiety disorder: Psych recs for remeron as per their note Trial during admission and no issues, pt would like to continue with this f/u with current outpt psych team (7) LFT elevation: Likely secondary to his acute alcohol abuse (8) Alcohol abuse: Feels he does not want to do inpatient rehab again, but is working with ongoing outpt resources like AA via Zoom and [place] Pt did inform parents that he was admitted, see above Has a plan for successful sobriety Advised Bcomplex and thiamine Total Time Total Time Spent Total Time Spent (In Minutes): >30 Total Time Includes: Examination of the Patient, Discharge Planning, Medication Reconciliation and Other Discharge Plan Discharge Items Patient Disposition: Home - Self-Care Reason For Visit: ALCOHOLISM, WITHDRAWAL, TREMULOUSNESS, N / V Discharge Diagnosis: Alcohol withdrawal Condition on Discharge: Fair Activity: Resume your previous activity Non-emergency contact: Primary Care Provider and Psychiatrist Call non-emergency contact if: you have any medication questions and your symptoms worsen Follow-up/Referrals: Mazin Villanueva MD [Primary Care Provider] - Diet: Regular Addtl Attending Provider Instructions: You should follow up with your psychiatry team as you are scheduled. Your B12 levels were borderline low. You should start taking a supplement for this. I recommend a sublingual (under the tongue) form because it is better absorbed. It is a B complex, meaning it has several types of B vitamins in it. A good brand is [employer] and you can find it at [facility] for around $5. They sell similar products at [facility]. You should also start taking vitamin B1 (thiamine). This is not generally part of a B complex product and comes as a tablet over the counter. If you feel that you are needing more support than your outpatient based rehab [facility] are providing, call [facility] to see if they have more support or even inpatient care. If they do not have availability, you can call the caseworker protective services at the hospital for further support options. Pending Studies at Discharge: No Stand-Alone Forms: [employer], Smoking Cessation Medications and DC Order Prescriptions: New mirtazapine 15 mg Tablet 15 mg PO HS Qty: 30 RF: 0 Discontinued trazodone 50 mg tablet 50 mg PO HS PRN (Reason: Sleep) RF: 0 Discharge Orders: Discharge Order (Routine); Ordered 04/06/20 Ordered By: Estelle Lara Admission Data Admit Date/Time: 04/05/20 01:49 Attending Provider: Estelle Lara Admit Provider: Bravo Talavera Primary Care Provider: Mazin Villanueva Other Providers: William Sweeney ; Sadie Alford Other Interventions: Discharge Summary Assessment (RN) Last Done: 04/06/20 09:39 DC Date/Time DO NOT enter until pt leaves facility: 04/06/20 10:01 Coding Level of Care Code D/C Day Management >30 mins Diagnoses Alcohol withdrawal F10.239 Complication of substance-induced condition: with unspecified complication Hypomagnesemia E83.42 Tachycardia R00.0 Acute dehydration E86.0 Vomiting R11.2 Nausea presence: with nausea Vomiting Intractability: non-intractable Vomiting type: unspecified Alcohol-induced anxiety disorder F10.980 LFT elevation R79.89 Alcohol abuse F10.10
== END 2020-04-06 10:01 | disposition home or self-care (01) | DRG 897 ==
LOC: ED 21:07 → 2S 04-05 01:49 → SUATTDRO 04-05 01:49 → 2S 04-05 02:25